=== PATIENT | male | born 1940 | race Caucasian/White ===

== ENCOUNTER 2018-04-25 12:58 | Emergency (ER) | payer MEDICARE, OTHER ==
[~2018-04-25] VITALS: Ht 175.3 cm; Wt 122.5 kg
[~2018-04-25 12:58] MED LIST: ASPIRIN EC325 MG PO; ATIVAN1 MG PO; CALCIUM 600 +1 EAC2 PO; CILOSTAZOL100 MG PO; DILTIAZEM ER240 MG PO; FINASTERIDE5 MG PO; FISH OIL 1,0001 EAC6 PO; FLAXSEED OIL1000 M1 PO; FLONASE ALLERG9.9 ML NS; HYDROCHLOROTHIA25 MG PO; MULTIVITAMINS1 EAC7 PO; POTASSIUM99 M2 PO; SIMVASTATIN20 MG PO; TYLENOL EXTRA500 MG PO
[2018-04-25] MEDS ORDERED: CLOPIDOGREL75 MG PO (13:09)
[2018-04-25] MEDS ORDERED: METOPROLOL SUCC50 MG PO (13:09)
--- NOTE | 2018-04-25 15:28 | EKG ---
[facility] [address] [facility] [place] [address] Signed Normal sinus rhythm Right bundle branch block Abnormal ECG Confirmed by JOSE MENA MD ([id number]) on 04/25/2018 3:28:35 PM Electronically Signed By: JOSE MENA MD 04/25/18 1528 PATIENT NAME: ZAIRA AGUILAR Electrocardiogram DATE OF : 42 PHYSICIAN: JOSE MENA MD REPORT #: [id number] REPORT IS CONFIDENTIAL AND NOT TO BE RELEASED WITHOUT AUTHORIZATION
== END 2018-04-25 16:56 | disposition short-term general hospital (02) ==
LOC: ED 12:58
DX: I20.0 Unstable angina (principal); I10 Essential (primary) hypertension; E78.00 Pure hypercholesterolemia, unspecified; Z88.8 Allergy status to other drugs, medicaments and biological substances; Z79.82 Long term (current) use of aspirin; Z88.5 Allergy status to narcotic agent; Z79.899 Other long term (current) drug therapy
CPT/HCPCS: 71045; 80053; 84484; 85025; 93005; 93010; 99285

== ENCOUNTER 2018-11-03 11:53 | Emergency (ER) | payer MEDICARE, OTHER ==
[~2018-11-03] VITALS: Ht 175.3 cm; Wt 124.7 kg
[~2018-11-03 11:53] MED LIST changes: -ASPIRIN EC325 MG PO; +ASPIRIN EC81 MG PO; +CATAPRES0.1 MG PO; +CLOPIDOGREL75 MG PO; +FUROSEMIDE40 MG PO; +K-TAB ER20 MEQ PO; +METOPROLOL SUCC50 MG PO
--- OUTSIDE RECORDS SUMMARY | 2018-11-03 11:58 | XMS ---
PreManage Notification: ZAIRA AGUILAR Security Day Care Provider Events No recent Security Events currently on file CRITERIA MET - [facility] [place] - 2 Visits in 30 Days CARE PROVIDERS Donavon Damon MD Primary Care Current PHONE: Unknown demi Case or Composition Worker Current PHONE: Unknown [facility] Other [facility] PHONE: Unknown Francisco has no Care Guidelines for this patient. E.D. VISIT COUNT (12 MO.) 1 [facility] 3 [facility] Braden TOTAL 4 NOTE: Visits indicate total known visits. ED/UCC VISIT TRACKING (12 MO.) 11/03/2018 11:54 [facility] [place] TYPE: Emergency COMPLAINT: - POST OP PROBLEM [facility] DIAGNOSES: - Occlusion and stenosis of right carotid artery - Dizziness - Poss Stroke - Aphasia - Cerebral infarction, unspecified 09/15/2018 16:45 [facility] [place] TYPE: Emergency COMPLAINT: - HIGH BLOOD PRESSURE DIAGNOSES: - Other group home (current) drug therapy - Essential (primary) hypertension - Other amnesia - Allergy status to narcotic agent status - terminal gauger supervisor (current) use of aspirin - Allergy status to other drugs, medicaments and biological substances status 04/25/2018 12:59 [facility] [place] TYPE: Emergency COMPLAINT: - CHEST PAIN DIAGNOSES: - skilled nursing (current) use of aspirin - Essential (primary) hypertension - Pure hypercholesterolemia, unspecified - Other chest pain - Unstable angina - PURE HYPERCHOLESTEROLEMIA, UNSPECIFIED - Allergy status to narcotic agent status - Other group home (current) drug therapy - Allergy status to other drugs, medicaments and biological substances status INPATIENT VISIT TRACKING (12 MO.) [facility]2018 [facility] DIAGNOSES: - Occlusion and stenosis of right carotid artery - Aphasia - Transient cerebral ischemic attack, unspecified - Essential (primary) hypertension - Atherosclerotic heart disease of [place] coronary artery without angina pectoris - Cerebral infarction, unspecified [email or web address]
--- NOTE | 2018-11-04 14:33 | EKG ---
[facility] [address] [facility] [place], [place] [address] Signed Normal sinus rhythm Right bundle branch block Abnormal ECG When compared with ECG of 15-SEP-2018 17:35, T wave inversion now evident in Anterior leads Confirmed by AHMET KERN DO ([id number]) on 11/04/2018 2:32:50 PM Electronically Signed By: AHMET KERN DO 11/04/18 1433 PATIENT NAME: ZAIRA AGUILAR Electrocardiogram DATE OF : 42 PHYSICIAN: AHMET KERN DO REPORT #: [id number] REPORT IS CONFIDENTIAL AND NOT TO BE RELEASED WITHOUT AUTHORIZATION
[2018-12-06] MEDS ORDERED: TYLENOL325 MG PO (10:24)
[2018-12-06] MEDS ORDERED: POTASSIUM CHLO10 ME2 PO (10:26)
[2018-12-06] MEDS ORDERED: CLOPIDOGREL75 MG PO (10:27)
[2018-12-06] MEDS ORDERED: AMLODIPINE BESYL5 MG PO (10:28)
== END 2018-11-03 17:31 | disposition home or self-care (01) ==
LOC: ED 11:53
DX: R47.1 Dysarthria and anarthria (principal); R25.3 Fasciculation; I10 Essential (primary) hypertension; E78.00 Pure hypercholesterolemia, unspecified; Z95.5 Presence of coronary angioplasty implant and graft; Z88.8 Allergy status to other drugs, medicaments and biological substances; Z88.5 Allergy status to narcotic agent; Z79.82 Long term (current) use of aspirin; Z79.899 Other long term (current) drug therapy
CPT/HCPCS: 70450; 70496; 70498; 70551; 80053; 84484; 85025; 93005; 93010; 96374; 99285-25; J2060; Q9967

== ENCOUNTER 2018-11-12 14:06 | Emergency (ER) | payer MEDICARE, OTHER ==
[~2018-11-12] VITALS: Ht 175.3 cm; Wt 124.7 kg
--- OUTSIDE RECORDS SUMMARY | 2018-11-12 14:10 | XMS ---
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 [place] VISIT COUNT (12 MO.) 1 [place] [facility] 4 PERCY Egan TOTAL 5 NOTE: Visits indicate total known visits. ED/UCC VISIT TRACKING (12 MO.) 11/12/2018 14:07 [facility] [place] TYPE: Emergency COMPLAINT: - BP PROBLEM/R ARM NUMBNESS/CONFUSION 11/03/2018 11:54 PERCY Solorio TYPE: Emergency COMPLAINT: - POST OP PROBLEM DIAGNOSES: - Essential (primary) hypertension - Allergy status to narcotic agent status - Other [facility] (current) drug therapy - Presence of coronary angioplasty implant and graft - senior living (current) use of aspirin - Dysarthria and anarthria - Pure hypercholesterolemia, unspecified - Allergy status to other drugs, medicaments and biological substances status - Fasciculation [facility]2018 [facility] DIAGNOSES: - Occlusion and stenosis of right carotid artery - Dizziness - Poss Stroke - Aphasia - Cerebral infarction, unspecified 09/15/2018 16:45 PERCY Solorio TYPE: Emergency COMPLAINT: - HIGH BLOOD PRESSURE DIAGNOSES: - Other [facility] (current) drug therapy - Essential (primary) hypertension - Other amnesia - Allergy status to narcotic agent status - senior living (current) use of aspirin - Allergy status to other drugs, medicaments and biological substances status 04/25/2018 12:59 [facility] [place] TYPE: Emergency COMPLAINT: - CHEST PAIN DIAGNOSES: - emt intermediate (current) use of aspirin - Essential (primary) hypertension - Pure hypercholesterolemia, unspecified - Other chest pain - Unstable angina - PURE HYPERCHOLESTEROLEMIA, UNSPECIFIED - Allergy status to narcotic agent status - Other technician terminal and repeater (current) drug therapy - Allergy status to other drugs, medicaments and biological substances status INPATIENT VISIT TRACKING (12 MO.) 10/26/2018 10:35 [place] [facility] TYPE: Intensive Care DIAGNOSES: - Occlusion and stenosis of right carotid artery - Aphasia - Transient cerebral ischemic attack, unspecified - Essential (primary) hypertension - Atherosclerotic heart disease of [place] coronary artery without angina pectoris - Cerebral infarction, unspecified [email or web address]
[2018-11-12] MEDS ORDERED: LORAZEPAM1 MG PO (14:28)
--- NOTE | 2018-11-13 09:16 | EKG ---
[facility] [address] [facility] [place] [address] Signed Normal sinus rhythm Right bundle branch block Abnormal ECG When compared with ECG of 03-NOV-2018 12:27, Nonspecific T wave abnormality has replaced inverted T waves in Anterior leads Confirmed by SUKHJINDER ELLISON MD ([id number]) on 11/13/2018 9:16:26 AM Electronically Signed By: SUKHJINDER ELLISON MD 11/13/18 0916 PATIENT NAME: ZAIRA AGUILAR Electrocardiogram DATE OF : 42 PHYSICIAN: SUKHJINDER ELLISON MD REPORT #: [id number] REPORT IS CONFIDENTIAL AND NOT TO BE RELEASED WITHOUT AUTHORIZATION
[2018-12-06] MEDS ORDERED: TYLENOL325 MG PO (10:24)
[2018-12-06] MEDS ORDERED: POTASSIUM CHLO10 ME2 PO (10:26)
[2018-12-06] MEDS ORDERED: CLOPIDOGREL75 MG PO (10:27)
[2018-12-06] MEDS ORDERED: AMLODIPINE BESYL5 MG PO (10:28)
== END 2018-11-12 16:25 | disposition home or self-care (01) ==
LOC: ED 14:06
DX: R47.9 Unspecified speech disturbances (principal); I10 Essential (primary) hypertension; E78.00 Pure hypercholesterolemia, unspecified; Z95.5 Presence of coronary angioplasty implant and graft; Z88.8 Allergy status to other drugs, medicaments and biological substances; Z79.82 Long term (current) use of aspirin; Z79.899 Other long term (current) drug therapy; Z51.81 Encounter for therapeutic drug level monitoring
CPT/HCPCS: 70450; 71045; 80053; 84484; 85025; 85610; 85730; 93005; 93010; 96374; 99285-25

== ENCOUNTER 2019-07-13 12:56 | Emergency (ER) | payer MEDICARE, OTHER ==
[~2019-07-13] VITALS: Ht 175.3 cm; Wt 124.7 kg
[~2019-07-13 12:56] MED LIST changes: +AMLODIPINE BESYL5 MG PO; +LORAZEPAM1 MG PO; +POTASSIUM CHLO10 ME2 PO; +TYLENOL325 MG PO
--- OUTSIDE RECORDS SUMMARY | 2019-07-13 13:00 | XMS ---
PreManage Notification: ZAIRA AGUILAR Security [place]asseuse Events No recent Security Events currently on file CRITERIA MET - [facility] [place] CARE PROVIDERS CHANDLER MIR Family [facility] 11/04/2018-Current PHONE: [phone] Donavon Damon MD Primary Care Current PHONE: Unknown demi Case or Injection Molder Current PHONE: Unknown [facility] Other [facility] PHONE: Unknown Francisco has no Care Guidelines for this patient. Care History Medical/Surgical 11/14/2018 [facility] - [facility] SPOKE WITH PCP OFFICE- PATIENT AND PCP HAVE BEEN WORKING TOGETHER WITH MEDICATION CHANGES. - PATIENT CURRENTLY HAS A NEUROLOGY AND VASCULAR SURGERY REFERRAL. Albert VISIT COUNT (12 MO.) 1 [facility] 4 [facility] TOTAL 5 NOTE: Visits indicate total known visits. ED/UCC VISIT TRACKING (12 MO.) [facility]13[facility]2019 12[facility] COMPLAINT: - SOB, BLOOD PRESSURE PROBLEM 11/12/2018 14:07 PER[facility] Solorio TYPE: Emergency COMPLAINT: - BP PROBLEM/R ARM NUMBNESS/CONFUSION DIAGNOSES: - Unspecified speech disturbances - Pure hypercholesterolemia, unspecified - Presence of coronary angioplasty implant and graft - Essential (primary) hypertension - Allergy status to other drugs, medicaments and biological substances status - Other machine long goods helper (current) drug therapy - Encounter for therapeutic drug level monitoring - long term care social worker (current) use of aspirin 11/03/2018 11:54 PERCY Solorio TYPE: Emergency COMPLAINT: - POST OP PROBLEM DIAGNOSES: - Essential (primary) hypertension - Allergy status to narcotic agent status - Other [facility] (current) drug therapy - Presence of coronary angioplasty implant and graft - long term care social worker (current) use of aspirin - Dysarthria and anarthria - Pure hypercholesterolemia, unspecified - Allergy status to other drugs, medicaments and biological substances status - Fasciculation 10/26/2018 10:35 [facility]y [facility] TYPE: Emergency DIAGNOSES: - Occlusion and stenosis of right carotid artery - Dizziness - Poss Stroke - Aphasia - Cerebral infarction, unspecified 09/15/2018 16:45 [facility] [place] TYPE: Emergency COMPLAINT: - HIGH BLOOD PRESSURE DIAGNOSES: - Other [facility] (current) drug therapy - Essential (primary) hypertension - Other amnesia - Allergy status to narcotic agent status - assisted (current) use of aspirin - Allergy status to other drugs, medicaments and biological substances status INPATIENT VISIT TRACKING (12 MO.) 10[facility]2018 [facility] DIAGNOSES: - Occlusion and stenosis of right carotid artery - Aphasia - Transient cerebral ischemic attack, unspecified - Essential (primary) hypertension - Atherosclerotic heart disease of [place] coronary artery without angina pectoris - Cerebral infarction, unspecified [email or web address]
[2019-07-13] MEDS ORDERED: METOPROLOL SUCC50 MG PO (13:53)
[2019-07-13] MEDS ORDERED: FLUOXETINE HCL20 MG PO (13:57)
[2019-07-13] MEDS ORDERED: CATAPRES0.1 MG PO (16:22)
--- NOTE | 2019-07-14 12:34 | EKG ---
[facility] [address] [facility] [place] [address] Signed Normal sinus rhythm Right bundle branch block Abnormal ECG When compared with ECG of 12-NOV-2018 14:26, No significant change was found Confirmed by JOSE MENA MD ([id number]) on 07/14/2019 12:34:01 PM Electronically Signed By: JOSE MENA MD 07/14/19 1234 PATIENT NAME: ZAIRA AGUILAR Electrocardiogram DATE OF : 42 PHYSICIAN: JOSE MENA MD REPORT #: [id number] REPORT IS CONFIDENTIAL AND NOT TO BE RELEASED WITHOUT AUTHORIZATION
== END 2019-07-13 16:25 | disposition home or self-care (01) ==
LOC: ED 12:56
DX: I10 Essential (primary) hypertension (principal); Z95.5 Presence of coronary angioplasty implant and graft; Z88.5 Allergy status to narcotic agent; Z88.8 Allergy status to other drugs, medicaments and biological substances; Z79.82 Long term (current) use of aspirin; Z79.899 Other long term (current) drug therapy
CPT/HCPCS: 71045; 80053; 83735; 84484; 85025; 93005; 93010; 99284-25

== ENCOUNTER 2019-07-26 12:49 | Emergency (ER) | payer MEDICARE, OTHER ==
[~2019-07-26] VITALS: Ht 175.3 cm; Wt 124.7 kg
--- OUTSIDE RECORDS SUMMARY | ~2019-07-26 | XMS | Encounter Summary ---
Demographics + + + | Address | [address] | | | [place] [address] | + + + | Home Phone | | + + + | Preferred Language | Unknown | + + + | Marital Status | | + + + | Orthodoxy Affiliation | 1001 | + + + | Race | Unknown | + + + | Ethnic Group | Unknown | + + + Author + + + | Author | [facility] | | | and [place] | + + + | Organization | [facility] | | | and [place] | + + + | Address | Unknown | + + + | Phone | Unavailable | + + + Support + + +---------+ + | Name | Relationship | Address | Phone | + + +---------+ + | Ina Alvarado | ECON | Unknown | | + + +---------+ + Care Team Providers + +------+ + | Care Vocational Horticulture Instructor Name | Role | Phone | + +------+ + | Franky Avalos MD | PCP | | + +------+ + Reason for Visit + + + | Reason | Comments | + + + | Back Pain | Discuss Injections | + + + Evaluate & Treat (Routine) + + + + + + + | Status | Reason | Specialty | Diagnoses / | Referred By | Referred To | | | | | Procedures | Contact | Contact | + + + + + + + | Authorized | Specialty | Physical | Diagnoses | | [facility] | | | Services | Medicine and | Muscle | [place], | Paul Rousseau MD [address] | | | Required | Rehabilitatio | twitching | [place], | [address] | | | | n | | [address] | [place], | | | | | | [address] | [place] [address] | | | | | | [place] | Phone: | | | | | | [address] | [phone] | | | | | | Phone: | Fax: | | | | | | [phone] | [phone] | | | | | | Fax: | | | | | | | [phone] | | + + + + + + + Encounter Details +--------+---------+ + + + | Date | Type | Department | Care Team | Description | +--------+---------+ + + + | 07/05/ | Office | [facility] | Mohit Porter PA-C | Spinal stenosis of | | 2019 | Visit | PHYSIATRY [address] | lumbar region with | | | | [place], | [address] [place] | neurogenic | | | | [place] [address] | [place] [address] | claudication | | | | [phone] | [phone] | (Primary Dx); | | | | | | Foraminal stenosis | | | | | | of lumbar region; | | | | | | Lumbar radicular | | | | | | syndrome | +--------+---------+ + + + Social History + +-------+ +--------+------+ | Tobacco Use | Types | Packs/Day | Years | Date | | | | | Used | | + +-------+ +--------+------+ | Never Smoker | | | | | + +-------+ +--------+------+ + +---+---+---+ | Smokeless Tobacco: | | | | | Never Used | | | | + +---+---+---+ + + +---------+ + | Alcohol Use | Drinks/We | oz/Week | Comments | | | ek | | | + + +---------+ + | Yes | | | Social | + + +---------+ + + + + | Sex Assigned at | Date Recorded | | | | + + + | Not on file | | + + + + + + + | Job Start Date | Occupation | Industry | + + + + | Not on file | Not on file | Not on file | + + + + + + + + | Travel History | Travel Start | Travel End | + + + + + + | No recent travel history available. | + + documented as of this encounter Last Filed Vital Signs + + + + | Vital Sign | Reading | Time Taken | + + + + | Blood Pressure | 110/70 | 07/05/2019 1447 PDT | + + + + | Pulse | - | - | + + + + | Temperature | - | - | + + + + | Respiratory Rate | - | - | + + + + | Oxygen Saturation | - | - | + + + + | Inhaled Oxygen | - | - | | Concentration | | | + + + + | Weight | 111.6 kg (246 lb) | 07/05/20191446 PDT | + + + + | Height | 175.3 cm (5' 9") | 07/05/20191446 PDT | + + + + | Body Mass Index | 36.33 | 07/05/20191446 PDT | + + + + documented in this encounter Functional Status + + + + | Functional Status | Response | Date of Assessment | + + + + | Are you deaf or do you have serious | No | 10/28/2018 | | difficulty hearing? | | | + + + + | Are you blind or do you have serious | No | 10/28/2018 | | difficulty seeing, even when wearing | | | | glasses? | | | + + + + | Do you have serious difficulty walking or | No | 10/28/2018 | | climbing stairs? (5 years old or older) | | | + + + + | Do you have difficulty dressing or bathing? | No | 10/28/2018 | | (5 years old or older) | | | + + + + | Because of a physical, mental, or emotional | No | 10/28/2018 | | condition, do you have difficulty doing | | | | errands alone such as visiting a doctor's | | | | office or shopping? [15 years old or | | | | older)] | | | + + + + + + + + | Cognitive Status | Response | Date of Assessment | + + + + | Because of a physical, mental, or emotional | No | 10/28/2018 | | condition, do you have serious difficulty | | | | concentrating, remembering, or making | | | | decisions? (5 years old or older) | | | + + + + documented as of this encounter Patient Instructions Patient Instructions Mohit Porter PA-C - 07/05/2019 15:20 PDT 1) Bilateral L4-L5 TFESI ordered today. Our office will call you once we have approval from insurance to move forward with next step in treatment plan. 2) Continue with at home exercises. 3) Continue with current Rx medications as prescribed and directed. 4) Follow up 3-4 weeks after injection. Common Spine and Disk Problems The most common serious back problemshappen when disks tear, bulge, or rupture. In such c ases, an injured disk can no longer cushion the vertebrae and absorb shock. As a result, the rest of your spine may also weaken. This can lead to pain, stiffness, and other symptoms. Torn annulus. A sudden movement may cause a tiny tear in an annulus. Nearby ligaments ma y stretch. Contained herniated disk. As a disk wears out, the nucleus may bulge into the annulus an d press on nerves. Extruded herniateddisk. When a disk ruptures, its nucleus can squeeze out and irritate a nerve. Arthritis. As disks wear out over time, bone spurs form. These growths can irritate nerv es and inflame facets. Instability. As a disk stretches, the vertebrae slip back and forth. This can put pressu re on the annulus. Spondylolisthesis.Thisis a condition in which one vertebra has moved forward or back rodriguez, in relation to the one above or below it. Thiscauses a crack (stress fracture) in th e areas that link the vertebrae together. This may put pressure on the annulus, stretch the disk, and irritate nerves. Date Last Reviewed: 03/18/201819993490-9969 [employer]. [address] [place] [address], [place] [address]. All [facility] ts reserved. This information is not intended as a substitute for professional medical care. Always follow your healthcare professional's instructions. documented in this encounter Progress Notes Mohit Porter PA-C - 07/05/2019 1520 PDT Mohit Porter PA-C [address] [facility], [address] [place] [address] FAX: CHIEF COMPLAINT: Chief Complaint Patient presents with Back Pain Discuss Injections HISTORY OF PRESENT ILLNESS: Mr. Alvarado is a 79 y.o. male being seen today on follow-up for complaints of chronic Low greg k pain. The patient has been seen for this complaint in the past. Previously it was recomme nded Bialteral L4-U2OURKW done by Dr. Morse on 04/03/2019 for Lumbar spinal stenosis and foraminal stenosis. He reports that the treatment was effective up until the past 1 week. H e reports that the treatment was effective up until the past 1 week. He is requesting to hav e the same type of injections repeated. Patient was originally seen by our Neurosurgery grou p for these symptoms back in 2013. Mr. Alvarado reports that the symptoms have gradually been worsening over the past 1 week. He rates the pain as moderate. He describes the pain as aching, sharp, soreness or localized . His symptoms worsen with movement, walking, bending, twisting. His symptoms improve with position change, physical therapy. The patient does not describe numbness of the bilatera l lower extremities. He does not report weakness of the bilateral lower extremities. He d oes not have bowel and bladder dysfunction. He does not have saddle anesthesia. Treatments for these complaints have included PT, injections, medications, TENS unit. Patient's medications, allergies, past medical, surgical, social and family histories were reviewed and updated as appropriate. CURRENT MEDICATIONS: Current Outpatient Medications Medication Sig Dispense Refill acetaminophen (TYLENOL) 650 MG CR tablet Take 650 mg by mouth every 8 hours as needed f or Pain. aspirin 81 mg EC tablet Take 81 mg by mouth Daily. cyanocobalamin (VITAMIN B-12) 1000 MCG tablet Take 1,000 mcg by mouth. finasteride (PROSCAR) 5 mg tablet finasteride 5 mg tablet Take 1 tablet every day by oral route. current FLUoxetine (PROZAC) 10 mg capsule Take 10 mg by mouth nightly. FLUoxetine (PROZAC) 20 mg capsule Take 20 mg by mouth nightly. fluticasone (FLONASE ALLERGY RELIEF) 50 mcg/nasal spray Flonase Allergy Relief 50 mcg/a ctuation nasal spray,suspension Inhale 2 sprays twice a day by intranasal route. furosemide (LASIX) 40 mg tablet Take 40 mg by mouth as needed. LORazepam (ATIVAN) 1 mg tablet Take 0.5 mg by mouth Daily as needed. metoprolol succinate (TOPROL-XL) 50 mg 24 hr tablet Take 50 mg by mouth Daily. ondansetron (ZOFRAN ODT) 4 mg disintegrating tablet Take 4 mg by mouth every 6 hours as needed for Nausea. promethazine-codeine (PHENERGAN WITH CODEINE) 6.25-10 mg/5 mL syrup Take 5 mLs by mouth 4 times daily as needed. simvastatin (ZOCOR) 20 mg tablet Take 20 mg by mouth nightly. TURMERIC PO Take 285 mg by mouth Daily. No current facility-administered medications for this visit. ALLERGIES: Allergies Allergen Reactions Morphine Other (See Comments) Hallucinations Lisinopril Other (See Comments) Cough Dizziness COUGH Losartan Nausea Only Continuous nausea and irritability REVIEW OF SYSTEMS: GENERALLY: No fever, chills, no night sweats, no fatigue, no weight loss, no weight gain. EYES: No vision changes. EARS, NOSE, AND THROAT: No hearing loss, no ear pain, no nosebleeds, no toothache, no gum p roblems, no significant snoring or sleep apnea, no seasonal allergies, no difficulty swallow ing, no hoarseness. NEUROMUSCULAR: Please see the review of systems discussed above in the history of present illness. In addition, the patient has no dizziness, no blackouts, no headaches. PSYCHIATRIC: No depression, no difficulty sleeping, no anxiety, no memory loss. CARDIOVASCULAR: No chest pain, no palpitations, no swollen ankles. PULMONARY: No shortness of breath, no cough. GASTROINTESTINAL: No poor appetite, no diarrhea, no nausea or vomiting, no bowel incontine nce, no hemorrhoids, no constipation, no abdominal pain. GENITOURINARY: No urinary difficulty and no incontinence. SKIN: No rashes. HEMATOLOGIC/LYMPHATIC: No enlarged lymph nodes or swollen glands. ENDOCRINE: No diabetes, no thyroid disease, no osteopenia or osteoporosis, no breast drain age. RHEUMATOLOGIC: No osteoarthritis, no rheumatoid arthritis. PHYSICAL EXAMINATION: Blood pressure 110/70, height 1.753 m (5' 9"), weight 111.6 kg (246 lb). Body mass index is 36.33 kg/m. GENERAL: The patient is well developed and well nourished. He does not appear uncomfortabl e when seated. HEENT: Normocephalic and atraumatic. Normal sclerae without icterus. NECK (ANTERIOR): There is no apparent cervical lymphadenopathy or thyromegaly. PULMONARY: The patient is in no acute respiratory distress with unlabored respirations. CARDIOVASCULAR: Regular rate and rhythm. There is not lower extremity edema. ABDOMEN: Non-distended. SKIN: Limited skin exam shows no significant rashes or lesions. NEUROLOGIC: The patient is awake, alert, and oriented. He follows simple and complex commands. His speech is fluent. He comprehends speech well. He has no apparent deficits with short or longterm memory. The cranial nerves appear grossly intact. Sensory exam does not show diminished sensation to light touch in the bilateral lower extre mities. REFLEX: RIGHT LEFT PATELLAR 2+ 2+ ACHILLES 2+ 2+ MUSCULOSKELETAL : MOTOR EXAM: (5 IS NORMAL) * Indicates pain limited MUSCLE/ MOVEMENT: RIGHT LEFT Hip Flexion 5 5 Hip Extension 5 5 Knee Flexion 5 5 Knee Extension 5 5 Extensor Hallicus Longus 5 5 Ankle Dorsiflexion 5 5 Plantarflexion 5 5 Straight leg raise and slump-sit are negative. Darrick's maneuver and impingement testing were negative for any groin pain. There was no tenderness to palpation over the greater trochanters or sacral sulci. The patient localized the majority of the pain to the L2-L3, L3-L4, L4-L5 region. Lumbar f acet loading was negative. The patient was able to heel and toe walk without difficulty. There was no redness, effusi on, warmth or joint line tenderness in the knees or ankles. RADIOGRAPHIC REVIEW: The patient's imaging was reviewed in detail with the patient today during the visit. Lumba r MRI from 11/25/2018: L3-L4 and L4-5 central canal stenosis that is moderate/severe. Multilevel significant neural foraminal narrowing. Spondylosis. DDD ASSESSMENT: Encounter Diagnoses Name Primary? 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 Shared decision leatha ojeda between Russ Alvarado and I was used during today's encounter. We discussed the patient 's differential diagnosis, description of symptoms, physical exam, imaging and treatment abdirizak n that suggest diagnosis at this time. 2) I counseled patient on treatment options which included conservative self management usi ng OTC NSAIDs/Ice and heat packs, physical therapy, prescription medications, epidural stero id injection, as well as possible surgical intervention. 3) Imaging: As descibed above in radiology review. Lumbar MRI was ordered to assess lumbar spine for herniation, disc pathology, and/or nerve root impingement that may be contributing to patient's symptoms. 4) The patient has had significant conservative care including medications (NSAIDS and narc otics), PT (multiple sessions over the years) and care management assistant. Unfortunately Russ Alvarado continues to have significant discomfort. It appears to me that the pain is primaril y coming from L2-L3, L3-L4 and L4-L5 region. I did feel that Russ Alvarado would be a good candidate for interventional procedures and I offered a bilateral L4-L5 TFESI to be done. I did feel that Russ Alvarado would be a good candidate for medication: Gabapentin, Cymba lta and nortriptyline 5) Patient will follow up in 3 weeks post injection or as needed to discuss any imaging and /or progress with today's treatment plan. 6) If current treatment plan is insufficient for symptom relief we could consider epidural injection, referral to neurosurgeon, Cymbalta, nortriptyline, gabapentin and Xray as the nex t possible option. I spent 25 minutes in visit with Russ Alvarado today with the majority of time spent coun selling the patient on his diagnosis, options for his care, and coordinating his care. 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 | | +--------+ + + + + | 02/13/ | Office | Cardiology | Archie Gould, | | | 2019 | Visit | | MD [address] | | | | | | [place] [address] [place] | | | | | | [phone] | | | | | | | | +--------+ + + + + + +--------+ + + | Name | Priori | Associated Diagnoses | Order Schedule | | | ty | | | + +--------+ + + | FL MURRAY Lumbar Transforaminal | Routin | Spinal stenosis of | Expected: | | | e | lumbar region with | 07/05/2019, Expires: | | | | neurogenic | 07/05/2020 | | | | claudication | | | | | Foraminal stenosis | | | | | of lumbar region | | | | | Lumbar radicular | | | | | syndrome | | + +--------+ + + documented as of this encounter Visit Diagnoses + + | Diagnosis | + + | Spinal stenosis of lumbar region with neurogenic claudication - Primary Spinal | | stenosis, lumbar region, with neurogenic claudication | + + | Foraminal stenosis of lumbar region Spinal stenosis, lumbar region, without | | neurogenic claudication | + + | Lumbar radicular syndrome Thoracic or lumbosacral neuritis or radiculitis, | | unspecified | + + documented in this encounter
--- OUTSIDE RECORDS SUMMARY | ~2019-07-26 | XMS | Encounter Summary ---
Demographics + + + | Address | [address] | | | [place] [address] | + + + | Home Phone | | + + + | Preferred Language | Unknown | + + + | Marital Status | | + + + | Jehovah'S Witness Affiliation | 1001 | + + + | Race | Unknown | + + + | Ethnic Group | Unknown | + + + Author + + + | Author | [facility] | | | and [place] | + + + | Organization | [facility] | | | [...] Team Providers + +------+ + | Care Armoring Machine Operator Name | Role | Phone | + +------+ + | Franky Avalos MD | PCP | | + +------+ + Encounter Details +--------+ + + + + | Date | Type | Department | Care Team | Description | +--------+ + + + + | 05/10/ | Orders Only | [facility] | Provider, | Essential (primary) | | 2018 | | [facility] | Historical, MD [address] | hypertension; | | | | CONVERSION [address] | [address] | Encounter for | | | | [address] [place], [place] | [place] [address] | therapeutic drug | | | | [address] | | level monitoring; | | | | [phone] | | Hypokalemia | +--------+ + + + + Social History + +-------+ [...] + + documented as of this encounter Functional Status + + + [...] + + documented as of this encounter Plan of Treatment +--------+ + + + + | Date | Type | Specialty | Care Team | Description | +--------+ + + + + | 08/10/ | Appointment | Radiology | Mohit Porter PA-C | | | 2018 | | | [address] | | | | | | [address] [place] | | | | | | [place] [address] | | | | | | [phone] | | | | | | | | | | | | 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, [employer] | | +--------+ + + + + | 02/13/ | Office | Cardiology | Archie Gould, | | | 2020 | Visit | | MD [address] | | | | | | [place] | | | | | | [address] | | | | | | | | +--------+ + + + + + +--------+ + + | Name | Priori | Associated Diagnoses | Order Schedule | | | ty | | | + +--------+ + + | Basic Metabolic Panel | Routin | Essential | Expected: | | | e | (primary) | 07/14/2018, Expires: | | | | hypertension | 06/13/2019 | | | | Encounter for | | | | | therapeutic drug | | | | | level monitoring | | | | | Hypokalemia | | + +--------+ + + documented as of this encounter Visit Diagnoses + + | Diagnosis | + + | Essential (primary) hypertension Unspecified essential hypertension | + + | Encounter for therapeutic drug level monitoring Encounter for therapeutic drug | | monitoring | + + | Hypokalemia Hypopotassemia | + + documented in this encounter"
--- OUTSIDE RECORDS SUMMARY | ~2019-07-26 | XMS | Encounter Summary ---
Demographics + + + | Address | [address] | | | [place] [address] | + + + | Home Phone | | + + + | Preferred Language | Unknown | + + + | Marital Status | | + + + | Zoroastrianism Affiliation | 1001 | + + + | Race | Unknown | + + + | Ethnic Group | Unknown | + + + Author + + + | Author | [facility] | | | and [place] | + + + | Organization | [facility] | | | and [...] Team Providers + +------+ + | Care Ocean Import Representative Name | Role | Phone | + +------+ + | Franky Avalos MD | PCP | | + +------+ + Reason for Visit + + + | Reason | Comments | + + + | Follow-up | atherosclerosis | + + + Evaluate & Treat (Routine) + +--------+ + + + + | Status | Reason | Specialty | Diagnoses / | Referred By | Referred To | | | | | Procedures | Contact | Contact | + +--------+ + + + + | Authorized | | General | Diagnoses | Robbie, | , | | | | Surgery | Carotid | Franky | Jorge Peacock, | | | | | stenosis | MD Serina | MD FACS [address] | | | | | Procedures | [address] | | | | | DC OFFICE | [place] | [place], | | | | | OUTPATIENT | [place] | [place] [address] | | | | | VISIT [address] | [place] [address] | Phone: | | | | | MINUTES | Phone: | [phone] | | | | | | [phone] | Fax: | | | | | | Fax: | [phone] | | | | | | [phone] | | + +--------+ + + + + Encounter Details +--------+---------+ + + + | Date | Type | Department | Care Team | Description | +--------+---------+ + + + | 06/14/ | Office | [facility] | Jorge Lebron | Atherosclerosis of | | 2019 | Visit | SURGERY [address] | MD Ayush, FACS [address] | arteries of | | | | [place], [place] | [address] [place] | extremities (HCC) | | | | [address] | [place] [address] | (Primary Dx) | | | | [phone] | [phone] | | | | | | | | +--------+---------+ + + + Social History [...] + + + | Blood Pressure | - | - | + + + + | Pulse | 72 | 06/14/2019831 PDT | + + + + | Temperature | 35.9 C (96.7 F) | 06/14/201932 PDT | + + + + | Respiratory Rate | 16 | 06/14/2019831 PDT | + + + + | Oxygen Saturation | 98% | 06/14/2019831 PDT | + + + + | Inhaled Oxygen | - | - | | Concentration | | | + + + + | Weight | - | - | + + + + | Height | 175.3 cm (5' 9") | 06/14/2019831 PDT | + + + + | Body Mass Index | - | - | + + + + documented in [...] + + documented as of this encounter Progress Notes Jorge Lebron MD, FACS - 06/14/2019 0840 PDTFormatting of this note might be differen t from the original. HISTORY OF PRESENT ILLNESS Patient Identification: Russ Alvarado 1940 Is a 79 y.o. male , a patient of Esdras Avalos MD. Patient is here alone. S: Date of surgery: 10/27/2018. Title of surgery: RIGHT carotid endarterectomy. Physician notes: Patient arrives today to follow up on LEFT foot pain. He continues to have LEFT leg weaknes s but has noted a significant improvement in his LEFT leg weakness. He is able to walk a lit tle over 1/4 a mile before needing to stop due to back pain. On a good day he is only able to stand for about 5 minutes before needing to sit down due t o back pain. He has been following up with Dr. Lujan regarding LEFT upper extremity and lowe r extremity pain and weakness. It was recommend he have a Nerve conduction study but he has not yet completed this.Has been having Bilateral transforaminal epidural steroid injections which he believes are helping his pain. He has been seeing [facility] orthopedics for back p ain. Reports he is doing total motion therapy, back brace and back exercises to avoid surger y. Patient been monitoring his blood pressure, states he usually struggles with hypotension. R ecently had some changes to his blood pressure medication. He is working on weight loss. PAST MEDICAL HISTORY Past Medical History: Diagnosis Date Allergic rhinitis Aortic stenosis Arthritis DJD Atypical chest pain Autonomic nervous system disorder Benign prostatic hyperplasia without urinary obstruction BPH (benign prostatic hyperplasia) Broken ankle 1967 Bruit Cardiovascular symptoms Cervicalgia Chronic back pain Chronic cough Chronic neck pain CKD (chronic kidney disease), stage III (HCC) Claudication, intermittent (HCC) Colon polyps Coronary artery disease Cough CVA (cerebral vascular accident) ([facility]) 10/26/2018 Degeneration of lumbar or lumbosacral intervertebral disc Depression with anxiety Diverticular disease of colon Dizziness DJD (degenerative joint disease) Elevated PSA Epidural lipomatosis Essential hypertension GERD (gastroesophageal reflux disease) Glucose intolerance Gross hematuria Hyperlipidemia Hypertension Impaired fasting glucose Incomplete bladder emptying Low back pain Moderate aortic stenosis Morbid obesity (HCC) Arreguin's neuroma Neuropathy Obesity, morbid (HCC) Pain in thoracic spine Prostate hyperplasia with urinary obstruction Radicular syndrome of lower limbs Sleep apnea SOB (shortness of breath) Spinal stenosis Spinal stenosis, cervical region Thoracic or lumbosacral neuritis or radiculitis, unspecified TIA (transient ischemic attack) 10/2018 Past Surgical History: Procedure Laterality Date ANKLE FRACTURE SURGERY Left 1974 APPENDECTOMY 1958 BACK SURGERY 2011 CARDIAC CATHERIZATION 10/07/2017 moderate aortic stenosis. Single-vessel coronary artery disease of the proximal RCA. CARDIAC CATHERIZATION 04/26/2018 Mild coronary artery disease. Patent stent in the proximal RCA with no significant residua l disease. CAROTID ENDARTERECTOMY Left 2014 CAROTID ENDARTERECTOMY Right 10/27/2018 Procedure: CAROTID ENDARTERECTOMY; Surgeon: Jorge Lebron MD, FACS; Location: [facility] AIN OR CATARACT REMOVAL CERVICAL SPINE SURGERY 05/07/2014 C3-4, C4-5, C5-6, C6-7 ANTERIOR CERVICAL DISCECTOMY FUSION; Laterality: N/A; Surgeon: Jose Davis MD; Location: [facility] MAIN OR COLONOSCOPY 2013 polyps COLONOSCOPY 01/10/2016 Polyps, diverticulosis, repeat 2020; Dr. Arrieta [place], [place] CORONARY ANGIOPLASTY WITH STENT PLACEMENT Right Angioplasty of the RCA with 2 overlapping JULIUS (resolute integrity 3x18mm and 4x12mm) stent s ECHOCARDIOGRAM 05/03/2018 left ventricle is normal in size. Mild concentric hypertrophy with an ejection fraction of 60-65%. Right ventricle with normal function. Moderate aortic stenosis with an ECTOR = 1.3 CM 2 LUM[address] SURG[address] 2011 Dr. Davis; Decompression L3-4, L4-[address] Sauer PROSTATE BIOPSY 2007 Dr. Sauer PROSTATE BIOPSY 2015 Dr. Castelan SKIN GRAFT Left 1972 Leg SKIN GRAFT Left 1971 Skin graft left ankle TONSILLECTOMY TURP 2009 Allergies Allergen Reactions Morphine Other (See Comments) Hallucinations Lisinopril Other (See Comments) Cough Dizziness COUGH Losartan Nausea Only Continuous nausea and irritability Medications: Outpatient Encounter Medications as of 06/14/2019 Medication Sig Dispense Refill acetaminophen (TYLENOL) 650 MG CR tablet Take 650 mg by mouth every 8 hours as needed f or Pain. [DISCONTINUED] aspirin 325 mg tablet aspirin 325 mg tablet Take 1 tablet every day by oral route. aspirin 81 mg EC tablet Take 81 mg by mouth Daily. [DISCONTINUED] cilostazol (PLETAL) 100 mg tablet Pletal 100 mg tablet Take 1 tablet twice a day by oral route. cyanocobalamin (VITAMIN B-12) 1000 MCG tablet Take 1,000 mcg by mouth. DILT-XR 240 MG 24 hr capsule Take 1 capsule by mouth Daily. [DISCONTINUED] dilTIAZem (DILACOR XR) 240 mg 24 hr capsule Every 24 Hours. [DISCONTINUED] dilTIAZem (DILTIAZEM CD) 240 MG 24 hr capsule diltiazem CD 240 mg capsul e,extended release 24 hr Take 1 capsule every day by oral route. finasteride (PROSCAR) 5 mg tablet finasteride 5 [...] tablet Take 20 mg by mouth nightly. [DISCONTINUED] simvastatin (ZOCOR) 20 mg tablet simvastatin 20 mg tablet Take 1 tablet every day by oral route. current [DISCONTINUED] TURMERIC CURCUMIN PO Take 285 mg by mouth Daily. No facility-administered encounter medications on file as of 06/14/2019. Family History Problem Relation Age of Onset Heart disease Father Heart attack Father Arrhythmia Father Coronary artery disease Father Hypertension Mother No known problems Brother No known problems Paternal Grandfather No known problems Paternal Grandmother No known problems Maternal Grandfather No known problems Maternal Grandmother No known problems Child Social History: He reports that he has never smoked. He has never used smokeless tobacco. He reports that h e drinks alcohol. He reports that he does not use drugs. PHYSICAL EXAM Vitals: 06/14/19 0832 Pulse: 72 Resp: 16 Temp: 35.9 C (96.7 F) TempSrc: Temporal SpO2: 98% Height: 1.753 m (5' 9") Body mass index is 36.33 kg/m. PE: General Appearance: Alert, cooperative, no distress, appears stated age Skin: Warm and dry Neck: Supple, symmetrical, no adenopathy, no neck bruits, RIGHT neck scar Lungs: Breath sounds are clear to auscultation bilaterally, no wheezes, crackles Heart: Regular rate and rhythm, S1, S2 normal, no murmur. No pacemaker. Extremities: Extremities normal, atraumatic, no cyanosis, clubbing, or edema Palpable Pulses*: Femoral Popliteal Dorsalis pedis Post tibial LEFT 2 2 0 1+ RIGHT 2 2 2+ 0 Doppler Pulses: LEFT strong strong RIGHT strong absent Neurologic: Alert and oriented x3,Moving all 4 extremities. , Gait normal ASSESSMENT 1. Atherosclerosis of arteries of extremities (HCC) PLAN 1. Asymptomatic bilateral tibial vessel stenosis. In my opinion, most of his leg pain i s neurogenic. Continue to follow up with Dr. Lujan for back pain. 2. S/P RIGHT Carotid endarterectomy Continue as planned with repeat carotid ultrasound in 2018 with follow up Follow up in August 2019 to review carotid duplex scan. 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
--- OUTSIDE RECORDS SUMMARY | ~2019-07-26 | XMS | Encounter Summary ---
Demographics + + + | Address | [address] | | | [place] [address] | + + + | Home Phone | | + + + | Preferred Language | Unknown | + + + | Marital Status | | + + + | Catholic Affiliation | 1001 | + + + | Race | Unknown | + + + | Ethnic Group | Unknown | + + + Author + + + | Author | [facility] | | | and [place] | + + + | Organization | [facility] | | | and [...] Team Providers + +------+ + | Care Log Truck Driver Name | Role | Phone | + +------+ + | Franky Avalos MD | PCP | | + +------+ + Reason for Visit +--------+ + | Reason | Comments | +--------+ + | Other | Patient wanted sooner appointment because he is having problems. | +--------+ + Encounter Details +--------+ + + + + | Date | Type | Department | Care Team | Description | +--------+ + + + + | 06/05/ | Telephone | [facility] | Sydni Padron | Other (Patient | | 2019 | | CARDIOLOGY RJ Garcia, Bindery Operator | wanted sooner | | | | [address] | | appointment because | | | | [place] | | he is having | | | | [address] | | problems. 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
--- OUTSIDE RECORDS SUMMARY | ~2019-07-26 | XMS | Encounter Summary ---
Demographics + + + | Address | [address] | | | [place] [address] | + + + | Home Phone | | + + + | Preferred Language | Unknown | + + + | Marital Status | | + + + | Restorationism Affiliation | 1001 | + + + | Race | Unknown | + + + | Ethnic Group | Unknown | + + + Author + + + | Author | [facility] | | | and [place] | + + + | Organization | [facility] | | | [...] Team Providers + +------+ + | Care Wrapper Operator Name | Role | Phone | [...] [address] | | | | | [place] OFFICE | [place] | [place], | | | | | OUTPATIENT | [place] | [place] [address] | | | | | VISIT [address] | [place] [address] | Phone: | | | | | MINUTES | Phone: | [phone] | | | | | | [phone] | Fax: | | | | | | Fax: | [phone] | | | | | | [phone] | | + +--------+ + + + + Encounter Details +--------+---------+ + + + | Date | Type | Department | Care Team | Description | +--------+---------+ + + + | 06/14/ | Office | [facility] | Jorge Lebron | Atherosclerosis of | | 2019 | Visit | SURGERY [address] | MD Ayush, FACS [address] | arteries of | | | | [place], [place] | [address] [place] | extremities (HCC) | | | | [address] | [place] [address] | (Primary Dx) | | | | [phone] | [phone] | | | | | | | [...] helping his pain. He has been seeing [facility] orthopedics for back p ain. Reports [...] artery disease Cough CVA (cerebral vascular accident) ([facility]) 10/26/2018 Degeneration of lumbar or lumbosacral intervertebral [...] ENDARTERECTOMY; Surgeon: Jorge Lebron MD, FACS; Location: [facility] AIN OR CATARACT REMOVAL CERVICAL SPINE SURGERY 05/07/2014 C3-4, C4-5, C5-6, C6-7 ANTERIOR CERVICAL DISCECTOMY FUSION; Laterality: N/A; Surgeon: Jose Davis MD; Location: [facility] MAIN OR COLONOSCOPY 2013 polyps COLONOSCOPY 01/10/2016 Polyps, diverticulosis, repeat 2020; Dr. 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
--- OUTSIDE RECORDS SUMMARY | ~2019-07-26 | XMS | Clinical Summary ---
Demographics + + + | Address | [address] | | | [place] [address] | + + + | Home Phone | | + + + | Preferred Language | Unknown | + + + | Marital Status | | + + + | Caodaism Affiliation | 1001 | + + + | Race | Unknown | + + + | Ethnic Group | Unknown | + + + Author + + + | Author | [facility] | | | and [place] | + + + | Organization | [facility] | | | and [...] Team Providers + +------+ + | Care Director Of Personnel Name | Role | Phone | + +------+ + | Franky Avalos MD | PCP | | + +------+ + Allergies + + + + + + | Active Allergy | Reactions | Severity | Noted | Comments | | | | | Date | | + + + + + + | Amlodipine | Vertigo | | 07/19/20 | | | | | | 19 | | + + + + + + | Lisinopril | Other (See Comments) | Low | 08/15/20 | Cough Dizziness | | | | | 12 | COUGH | + + + + + + | Losartan | Nausea Only | Low | 10/14/20 | Continuous nausea | | | | | 17 | and irritability | + + + + + + | Morphine | Other (See Comments) | Medium | 04/25/20 | Hallucinations | | | | | 18 | | + + + + + + Medications + + + +---------+------+------+-------+ | Medication | Sig | Dispensed | Refills | Star | End | Statu | | | | | | t | Date | s | | | | | | Date | | | + + + +---------+------+------+-------+ | simvastatin | Take 20 mg by mouth | | 0 | | | Activ | | (ZOCOR) 20 mg tablet | nightly. | | | | | e | + + + +---------+------+------+-------+ | acetaminophen | Take 650 mg by mouth | | 0 | | | Activ | | (TYLENOL) 650 MG CR | every 8 hours as | | | | | e | | tablet | needed for Pain. | | | | | | + + + +---------+------+------+-------+ | aspirin 81 mg EC | Take 81 mg by mouth | | 0 | | | Activ | | tablet | Daily. | | | | | e | + + + +---------+------+------+-------+ | furosemide (LASIX) | Take 40 mg by mouth | | 0 | | | Activ | | 40 mg tablet | as needed. | | | | | e | + + + +---------+------+------+-------+ | ondansetron | Take 4 mg by mouth | | 0 | | | Activ | | (ZOFRAN ODT) 4 mg | every 6 hours as | | | | | e | | disintegrating | needed for Nausea. | | | | | | | tablet | | | | | | | + + + +---------+------+------+-------+ | LORazepam (ATIVAN) | Take 0.5 mg by mouth | | 0 | 01/2 | | Activ | | 1 mg tablet | Daily as needed. | | | 5/20 | | e | | | | | | 19 | | | + + + +---------+------+------+-------+ | FLUoxetine | Take 20 mg by mouth | | 0 | | | Activ | | (PROZAC) 20 mg | nightly. | | | | | e | | capsule | | | | | | | + + + +---------+------+------+-------+ | FLUoxetine | Take 10 mg by mouth | | 0 | 02/1 | | Activ | | (PROZAC) 10 mg | nightly. | | | 8/20 | | e | | capsule | | | | 19 | | | + + + +---------+------+------+-------+ | cyanocobalamin | Take 1,000 mcg by | | 0 | | | Activ | | (VITAMIN B-12) 1000 | mouth. | | | | | e | | MCG tablet | | | | | | | + + + +---------+------+------+-------+ | | Take 5 mLs by mouth | | 0 | | | Activ | | promethazine-codeine | 4 times daily as | | | | | e | | (PHENERGAN WITH | needed. | | | | | | | CODEINE) 6.25-10 | | | | | | | | mg/5 mL syrup | | | | | | | + + + +---------+------+------+-------+ | finasteride | finasteride 5 mg | | 0 | | | Activ | | (PROSCAR) 5 mg | tablet Take 1 tablet | | | | | e | | tablet | every day by oral | | | | | | | | route. current | | | | | | + + + +---------+------+------+-------+ | fluticasone | Flonase Allergy | | 0 | | | Activ | | (FLONASE ALLERGY | Relief 50 | | | | | e | | RELIEF) 50 mcg/nasal | mcg/actuation nasal | | | | | | | spray | spray,suspension | | | | | | | | Inhale 2 sprays | | | | | | | | twice a day by | | | | | | | | intranasal route. | | | | | | + + + +---------+------+------+-------+ | metoprolol | Take 25 mg by mouth | | 0 | | | Activ | | succinate | Daily. | | | | | e | | (TOPROL-XL) 50 mg 24 | | | | | | | | hr tablet | | | | | | | + + + +---------+------+------+-------+ | TURMERIC PO | Take 285 mg by mouth | | 0 | | | Activ | | | Daily. | | | | | e | + + + +---------+------+------+-------+ | DILT-XR 240 MG 24 | Take 1 capsule by | | 0 | 10/19 | 06/18 | Disco | | hr capsule | mouth Daily. | | | 06/06 | 06/06 | ntinu | | | | | | 19 | 19 | ed | + + + +---------+------+------+-------+ Active Problems + + + | Problem | Noted Date | + + + | Spinal stenosis of lumbar region | 01/02/2019 | + + + | Tubular adenoma of colon | 11/21/2018 | + + + | Foraminal stenosis of lumbar region | 11/18/2018 | + + + | Lumbar facet joint pain | 11/18/2018 | + + + | Carotid stenosis, symptomatic w/o infarct, right | 10/27/2018 | + + + | TIA (transient ischemic attack) | 10/27/2018 | + + + | Coronary artery disease involving [place] coronary artery of | 10/27/2018 | | [place] heart without angina pectoris | | + + + | Moderate aortic stenosis by prior echocardiogram | 10/27/2018 | + + + | CVA (cerebral vascular accident) | 10/26/2018 | + + + | Neck pain | 09/07/2018 | + + + | History of myocardial infarction | 05/13/2018 | + + + | Dyslipidemia, goal to be determined | 05/12/2018 | + + + | Presence of drug-eluting stent in right coronary artery | 05/12/2018 | + + + | S/P PTCA (percutaneous transluminal coronary angioplasty) | 05/12/2018 | + + + | Hyperlipidemia | 04/25/2018 | + + + | Bilateral carotid artery stenosis | 10/06/2017 | + + + | History of right-sided carotid endarterectomy | 10/06/2017 | + + + | Flat back syndrome | 03/09/2017 | + + + | Lumbar radicular syndrome | 05/08/2015 | + + + | S/P cervical spinal fusion | 06/08/2014 | + + + | Cervical spondylosis with myelopathy | 03/21/2014 | + + + | Cervical kyphosis | 03/21/2014 | + + + | Degenerative disc disease, cervical | 03/21/2014 | + + + | Cervical spinal stenosis | 03/21/2014 | + + + | Neurogenic claudication | 02/21/2014 | + + + | Cervical radiculopathy | 02/21/2014 | + + + | Lesion of plantar nerve | 08/15/2012 | + + + | Peripheral vascular disease, unspecified | 08/15/2012 | + + + + + | Overview: ICD-10 Record update | | | | Overview: | | Overview: | | ICD-10 Record update | + + + + + | Other symptoms involving cardiovascular system | 08/15/2012 | + + + | Impaired fasting glucose | 08/15/2012 | + + + | DEGENERATIVE DISC DISEASE, LUMBAR SPINE | | + + + | THORACIC/LUMBOSACRAL NEURITIS/RADICULITIS UNSPEC | | + + + | PAIN IN THORACIC SPINE | | + + + | Chronic bilateral low back pain without sciatica | | + + + | Chronic cough | | + + + | SOB (shortness of breath) | | + + + | Benign essential hypertension | | + + + | Benign prostatic hyperplasia without urinary obstruction | | + + + | Depression with anxiety | | + + + | Autonomic nervous system disorder | | + + + | Orthostatic hypotension | | + + + | Neuropathy | | + + + | Colon polyps | | + + + | Elevated PSA | | + + + | Gross hematuria | | + + + | Incomplete bladder emptying | | + + + | Intermittent claudication | | + + + Resolved Problems + + + + | Problem | Noted | Resolved | | | Date | Date | + + + + | Cough | 08/15/20 | | | | 12 | 3 | + + + + | MORBID OBESITY | | | | | | 9 | + + + + Encounters +--------+ + + + + | Date | Type | Specialty | Care Team | Description | +--------+ + + + + | 07/19/ | Office | Cardiology | Archie Gould, | Benign essential | | 2018 | Visit | | MD | hypertension | | | | | | (Primary Dx); | | | | | | Coronary artery | | | | | | disease involving | | | | | | [place] coronary | | | | | | artery of [place] | | | | | | heart without angina | | | | | | pectoris; | | | | | | Cerebrovascular | | | | | | accident (CVA), | | | | | | unspecified | | | | | | mechanism (HCC); | | | | | | Moderate aortic | | | | | | stenosis by prior | | | | | | echocardiogram; | | | | | | Orthostatic | | | | | | hypotension; | | | | | | Autonomic nervous | | | | | | system disorder | +--------+ + + + + | 07/05/ | Office | Physical Medicine | Mohit Porter PA-C | Spinal stenosis of | | 2019 | Visit | and Rehabilitation | | lumbar region with | | | | | | neurogenic | | | | | | claudication | | | | | | (Primary Dx); | | | | | | Foraminal stenosis | | | | | | of lumbar region; | | | | | | Lumbar radicular | | | | | | syndrome | +--------+ + + + + | 06/14/ | Office | General Surgery | Jorge Lebron | Atherosclerosis of | | 2018 | Visit | | MD Peacock FACS | arteries of | | | | | | extremities (HCC) | | | | | | (Primary Dx) | +--------+ + + + + | 06/05/ | Telephone | Cardiology | Sydni Padron | Other (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 ) | +--------+ + + + + | 05/10/ | Orders Only | | Provider, | Essential (primary) | | 2018 | | | MD Graham | hypertension; | | | | | | Encounter for | | | | | | therapeutic drug | | | | | | level monitoring; | | | | | | Hypokalemia | +--------+ + + + + from Last 3 Months Immunizations + + + + | Name | Dates Previously Given | Next Due | + + + + | INFLUENZA 66 Y OR >, | 08/15/2018, 10/27/2016, 08/21/2014, | | | TRIVALENT HIGH-DOSE | 08/08/2013, 08/09/2012, 09/11/2011 | | + + + + | INFLUENZA PF 19 Y OR | 08/10/2012 | | | >,TRIVALENT | | | | RECOMBINANT | | | + + + + | INFLUENZA PF 66 Y OR | 08/03/2017 | | | >,TRIVALENT (FLUAD) | | | + + + + | PNEUMOCOCCAL | 10/27/2016, 10/27/2016, 08/22/2015 | | | CONJUGATE 13-VALENT | | | | (PCV13) | | | + + + + | PNEUMOCOCCAL | 08/03/2017, 08/19/2010, 10/05/2006 | | | POLYSACCHARIDE | | | | 23-VALENT (PPSV23) | | | + + + + | TD PF (5 LF TETANUS) | 07/18/2012 | | | (ADOL/ADULT) | | | + + + + | TDAP, (ADOL/ADULT) | 08/08/2013 | | + + + + | TETANUS TOXOID | 07/18/2012 | | | ABSORBED, | | | | (ADOL/ADULT) | | | + + + + | ZOSTER, 1 DOSE | 08/11/2012 | | | (ZOSTAVAX) | | | + + + + Family History + + +------+ + | Medical History | Relation | Name | Comments | + + +------+ + | No known problems | Brother | | | + + +------+ + | No known problems | Child | | | + + +------+ + | Arrhythmia | Father | | | + + +------+ + | Coronary artery | Father | | | | disease | | | | + + +------+ + | Heart attack | Father | | | + + +------+ + | Heart disease | Father | | | + + +------+ + | No known problems | Maternal | | | | | Grandfath | | | | | er | | | + + +------+ + | No known problems | Maternal | | | | | Grandmoth | | | | | er | | | + + +------+ + | Hypertension | Mother | | | + + +------+ + | No known problems | Paternal | | | | | Grandfath | | | | | er | | | + + +------+ + | No known problems | Paternal | | | | | Grandmoth | | | | | er | | | + + +------+ + + +------+ + + | Relation | Name | Status | Comments | + +------+ + + | Brother | | Alive | | + +------+ + + | Child | | | | + +------+ + + | Father | | | | + +------+ + + | Maternal Grandfather | | | | + +------+ + + | Maternal Grandmother | | | | + +------+ + + | Mother | | | | + +------+ + + | Paternal Grandfather | | | | + +------+ + + | Paternal Grandmother | | | | + +------+ + + Social History + +-------+ +--------+------+ [...] recent travel history available. | + + Last Filed Vital Signs + + + + | Vital Sign | Reading | Time Taken | + + + + | Blood Pressure | 138/82 | 07/19/20191004 PDT | + + + + | Pulse | 99 | 07/19/20191004 PDT | + + + + | Temperature | 35.9 C (96.7 F) | 06/14/2019831 PDT | + + + + | Respiratory Rate | 16 | 06/14/2019831 PDT | + + + + | Oxygen Saturation | 97% | 07/19/20191004 PDT | + + + + | Inhaled Oxygen | - | - | | Concentration | | | + + + + | Weight | 102.4 kg (225 lb | 07/19/20191004 PDT | | | 12.8 oz) | | + + + + | Height | 175.3 cm (5' 9") | 07/19/20191004 PDT | + + + + | Body Mass Index | 33.34 | 07/19/20191004 PDT | + + + + Plan of Treatment +--------+ + + + + | Date | Type | Specialty | Care Team | Description | +--------+ + + + + | 08/10/ | Appointment | Radiology | Mohit Porter PA-C | | | 2018 | | | [address] | | | | | | [address] | | | | | | [place] [address] | | | | | | [phone] | | | | | | | | | | | | [place] | | +--------+ + + + + | 02/13/ | Office | Cardiology | Archie Gould, | | | 2019 | Visit | | MD Zofia SALAZAR | | | | | | [place] [address] | | | | | | [id number] | | | | | | | | +--------+ + + + + + + + + + | Health Maintenance | Due Date | Last Done | Comments | + + + + + | Vaccine: Zoster (2 | | 08/11/2012 | | | of 3) | 2 | | | + + + + + | Adult Annual | | | | | Wellness Visit | 5 | | | + + + + + | Vaccine: Influenza | | 08/15/2018, 08/03/2017, | | | (#1) | 9 | 10/27/2016, Additional history | | | | | exists | | + + + + + | Vaccine: | | 08/08/2013, 07/18/2012, | | | Dtap/Tdap/Td (2 - | 3 | 07/18/2012 | | | Td) | | | | + + + + + | Vaccine: | Completed | 08/03/2017, 10/27/2016, | | | Pneumococcal 65+ | | 08/22/2015, Additional history | | | Low/Medium Risk | | exists | | + + + + + Implants + +-------+--------+ +--------+--------+--------+ | Implanted | Type | Area | Manufacture | Device | Shelf | Model | | | | | r | | Expira | / | | | | | | Identi | tion | Serial | | | | | | fier | Date | / Lot | + +-------+--------+ +--------+--------+--------+ | Xgrft Vascu-Guard Ptch 0.8x8 | Graft | Right: | JOSE | | 05/18/ | VG-[id number] | | - [id number]: | | Neck | BIOSCIENCE | | 2023 | 8N | | Qty: 1 on 10/27/2018 by | | | - JT | | | /[id number] | | Jorge Lebron MD, [facility] | | | | | | [id number] | | | | | | | | 1 | | | | | | | | /[id number] | | | | | | | | [id number] | | | | | | | | 637 | + +-------+--------+ +--------+--------+--------+ | Alllakisha Olivo Pls 1cc Aseptic | | Anteri | OSTEOTECH - | | 01/25/ | [id number] | | - [id number]: Qty: | | or: | OSTT | | 2015 | | | 1 on 05/07/2014 by Ryan, | | Spine | | | | /[id number] | | Edson Rousseau MD | | Nicholas | | | | 6-083 | | | | al | | | | / | + +-------+--------+ +--------+--------+--------+ | Allograft Lordotic [id number] - | | Anteri | SOFAMOR | | 02/07/ | [id number] | | [id number]: Qty: 1 on | | or: | DANEK - DIV | | 2016 | | | 05/07/2014 by Edson Davis, | | Spine | [employer] | | | /[id number] | [place] | Davin Peterson | - SFDK | | | 32 | | | | al | | | | /[id number] | | | | | | | | 6400 | + +-------+--------+ +--------+--------+--------+ | Allograft Lordotic [id number] - | | Anteri | SOFAMOR | | 11/21/ | [id number] | | [id number]: Qty: 1 on | | or: | DANEK - DIV | | 2016 | | | 05/07/2014 by Edson Davis, | | Spine | [employer] | | | /[id number] | | MD | | Cervic | - SFDK | | | 67 | | | | al | | | | /[id number] | | | | | | | | 9854 | + +-------+--------+ +--------+--------+--------+ | Allograft Lordotic [id number] - | | N/A: | SOFAMOR | | 01/16/ | [id number] | | [id number]: Qty: 1 on | | Spine | DANEK - DIV | | 2016 | | | 05/07/2014 by Edson Davis, | | Cervic | [employer] | | | /[id number] | | MD | | al | - SFDK | | | 97 | | | | | | | | /[id number] | | | | | | | | 9677 | + +-------+--------+ +--------+--------+--------+ | Allograft Lordotic [id number] - | | Anteri | SOFAMOR | | 02/07/ | [id number] | | [id number]: Qty: 1 on | | or: | DANEK - DIV | | 2016 | | | 05/07/2014 by Edson Davis, | | Spine | [employer] | | | /[id number] | | MD | | Cervic | - SFDK | | | 42 | | | | al | | | | /[id number] | | | | | | | | 6400 | + +-------+--------+ +--------+--------+--------+ | Screw Slf-Drl F/A 4.5x15mm - | | Anteri | SOFAMOR | | | [id number] | | [id number]: Qty: 2 on | | or: | DANEK - DIV | | | | | 05/07/2014 by Edson Davis, | | Spine | [employer] | | | | | MD | | Cervic | - SFDK | | | | | | | al | | | | | + +-------+--------+ +--------+--------+--------+ | Screw Slf-Drl V/A 4.0x15mm - | | Anteri | SOFAMOR | | | [id number] | | [id number]: Qty: 4 on | | or: | DANEK - DIV | | | | | 05/07/2014 by Edson Davis, | | Spine | [employer] | | | | | MD | | Cervic | - SFDK | | | | | | | al | | | | | + +-------+--------+ +--------+--------+--------+ | Screw Slf-Drl V/A 4.0x16mm - | | Anteri | SOFAMOR | | | [id number] | | [id number]: Qty: 4 on | | or: | DANEK - DIV | | | 6 / / | | 05/07/2014 by Edson Davis, | | Spine | [employer] | | | | | | | Nicholas | - SFDK | | | | | | | al | | | | | + +-------+--------+ +--------+--------+--------+ | Plate Ant Artas Cerv | | Anteri | [employer] - | | | [id number] | | 82.5mm - [id number]: | | or: | MEDT | | | 2 / / | | Qty: 1 on 05/07/2014 by Ryan | Davin Spine | | | | | | Edson Rousseau MD | | Nicholas | | | | | | | | al | | | | | + +-------+--------+ +--------+--------+--------+ Results Not on filefrom Last 3 Months Insurance + +--------+ +--------+ +---------+--------+ | Payer | Benefi | Subscriber | Effect | Phone | Address | Type | | | t Plan | ID | mart | | | | | | / | | Dates | | | | | | Group | | | | | | + +--------+ +--------+ +---------+--------+ | MEDICARE | MEDICA | [id number] | 04/17/20 | [phone] | | Medica | | | RE | | 06-Pre | 5 | | re | | | PART A | | sent | | | | | | AND B | | | | | | + +--------+ +--------+ +---------+--------+ | MEDICARE | MEDICA | [id number] | 04/17/20 | [phone] | | Medica | | | RE | | 06-Pre | 5 | | re | | | PART A | | sent | | | | | | AND B | | | | | | + +--------+ +--------+ +---------+--------+ | [employer] | [place] | [id number] | 05/18/20 | [phone] | | Indemn | | | OF | | 18-Pre | 0 | | ity | | | [employer] | | sent | | | | | | MDCR | | | | | | | | SUPPL | | | | | | + +--------+ +--------+ +---------+--------+ | [employer] | [place] | [id number] | 05/18/20 | [phone] | | Indemn | | | OF | | 18-Pre | 0 | | ity | | | [employer] | | sent | | | | | | MDCR | | | | | | | | SUPPL | | | | | | + +--------+ +--------+ +---------+--------+ + +--------+ +--------+ + + | Guarantor Name | Accoun | Relation to | Date | Phone | Billing Address | | | t Type | Patient | of | | | | | | | | | | + +--------+ +--------+ + + | Russ Alvarado | Person | Self [birth year] | [address] | | | al/Fam | | 1940 | [phone] | [place], [place] | | | marcio | | | 1 (Home) | [phone] | + +--------+ +--------+ + + | Russ Alvarado | Person | Self | [birth year] | [address] | | | al/Fam | | 1940 | [phone] | [place], [place] | | | [place] | | | 1 (Home) | [phone] | + +--------+ +--------+ + + Advance Directives Patient has advance care planning documents, and code status on file. For more information, please contact:[facility] irma [place] [address] + + + + + | Code Status | Date | Date | Comments | | | Activated | Inactivated | | + + + + + | Full Code | 10/28/2018 | 10/28/2018 | | | | 7:29 | 19:53 | | + + + + + + + + +---+ | | | | | + + + +---+ | Full Code | 10/26/2018 | 10/27/2018 | | | | 18:04 | 22:46 | | + + + +---+ + + + +---+ | | | | | + + + +---+ | Full Code | 05/07/2014 | 05/08/2014 | | | | 12:36 | 11:27 | | + + + +---+
--- OUTSIDE RECORDS SUMMARY | ~2019-07-26 | XMS | Encounter Summary ---
Demographics + + + | Address | [address] | | | [place] [address] | + + + | Home Phone | | + + + | Preferred Language | Unknown | + + + | Marital Status | | + + + | Baptism Affiliation | 1001 | + + + | Race | Unknown | + + + | Ethnic Group | Unknown | + + + Author + + + | Author | [facility] | | | and [place] | + + + | Organization | [facility] | | [...] Team Providers + +------+ + | Care Motor Equipment Commanding Officer Name | Role | Phone | + +------+ + | Franky Avalos MD | PCP | | + +------+ + Reason for Referral Diagnostic/Screening (Routine) + +--------+ + + + + | Status | Reason | Specialty | Diagnoses / | Referred By | Referred To | | | | | Procedures | Contact | Contact | + +--------+ + + + + | Authorizatio | | Radiology | Diagnoses | Luis Fernando | [facility] | | n not | | | Benign | Archie MD | [address] | | Required | | | essential | [address] | | | | | hypertension | [facility] | [place], [place] | | | | | Coronary | [place] | [address] | | | | | artery | [place], [place] | Phone: | | | | | disease | [address] | [phone] | | | | | involving | Phone: | Fax: | | | | | [place] | [phone] | [phone] | | | | | coronary | Fax: | | | | | | artery of | [phone] | | | | | | [place] heart | | | | | | | without | | | | | | | angina | | | | | | | pectoris | | | | | | | Cerebrovascu | | | | | | | lar accident | | | | | | | (CVA), | | | | | | | unspecified | | | | | | | mechanism | | | | | | | (HCC) | | | | | | | Moderate | | | | | | | aortic | | | | | | | stenosis by | | | | | | | prior | | | | | | | echocardiogr | | | | | | | am | | | | | | | Orthostatic | | | | | | | hypotension | | | | | | | Procedures | | | | | | | ECHO | | | | | | | Complete | | | + +--------+ + + + + Reason for Visit + + + | Reason | Comments | + + + | Follow-up | | + + + Encounter Details +--------+---------+ + + + | Date | Type | Department | Care Team | Description | +--------+---------+ + + + | 07/19/ | Office | [facility] | Archie Villanueva, | Benign essential | | 2019 | Visit | CARDIOLOGY KAREN | [address] | hypertension | | | | [address] | [place], [place] | (Primary Dx); | | | | [address] [place] [address] | [id number] | Coronary artery | | | | [place] | | disease involving | | | | [address] | | [place] coronary | | | | [phone] | | artery of [place] | | | | | | heart [...] | | | | system disorder | +--------+---------+ + + + Social History [...] 07/19/20191004 PDT | + + + + documented [...] documented as of this encounter Progress Notes Archie Villanueva MD - 07/19/2019 1015 PDT Date of visit: 07/19/2019 Primary Care Physician: Franky Avalos MD CHIEF COMPLAINT: Chief Complaint Patient presents with Follow-up HISTORY OF PRESENT ILLNESS: Russ is 79 y.o. here for here for follow up visit. History of coronary artery disease. Has been following up for moderate aortic stenosis. Previous right endarterectomy. Continues to have orthostatic dizziness, had multiple events of hypertensive emergencies, h as been monitoring of his blood pressure at home. For some reason even from previous note patient was supposed to be on diltiazem apparently he was taking both diltiazem and metoprolol, eventually diltiazem was stopped and he was wea james off metoprolol secondary to his orthostatic dizziness. Started having symptoms with indira vated blood pressure above 200 systolic. His symptoms were associated sometimes with confus ion. Was evaluated in the emergency room on July 13, was started on clonidine and meto prolol was stopped. Since then he had used 2 clonidine pills. His blood pressure continues to be elevated with sometimes low numbers. Previously hospitalized in April with 2017 secondary to chest pain at that time coronary ang iogram was done and showed stable coronary artery disease with patent stent in the proximal RCA. Lost significant weight. Baseline weight 275 pounds currently 249. Overall limited activity level due to back and hip pain. Gets bilateral hip injection for p ain relief. Past medical history, SH, FH, and medications were reviewed in the chart. Medications: Outpatient Encounter Medications as of 07/19/2019 Medication Sig Dispense Refill acetaminophen (TYLENOL) 650 [...] facility-administered encounter medications on file as of 07/19/2019. Allergies Allergies Allergen Reactions Morphine Other (See Comments) Hallucinations Lisinopril Other (See Comments) Cough Dizziness COUGH Losartan Nausea Only Continuous nausea and irritability REVIEW OF SYSTEMS: Constitutional: Positive for fatigue weight has been stable. HEENT: Negative for nosebleeds, ear discharge, nasal congestion or soar throat. Eyes: Negative for visual disturbance, redness, or secretion. Respiratory: Negative for cough, sputum production, hemoptysis, wheezing. Cardiovascular: HPI. Gastrointestinal: Negative for nausea, vomiting, diarrhea, abdominal pain and blood in stoo l. Genitourinary: Negative for dysuria or hematuria. Still for prostatic hypertrophy. Musculoskeletal: Chronic arthritic pain follows up with pain management. Skin: Negative for rash. Neurological: Still for orthostatic dizziness. No numbness. No recent falls. No slurred spe ech. Hematological: No significant bruising. Psychiatric/Behavioral: No depression or anxiety. PHYSICAL EXAM Vital Signs: BP 138/82 | Pulse 99 | Ht 1.753 m (5' 9") | Wt 102.4 kg (225 lb 12.8 oz) | SpO2 97% | BMI 33.34 kg/m GENERAL APPEARANCE: Alert, oriented, cooperative, no distress, appears stated age. HEENT: Extraocular movements were intact. No jaundice. Pupiles round and reactive. NECK: No JVD, lymphadenopathy. Carotid upstrokes normal. No carotid bruit heard. CARDIAC: Regular rhythm and rate. There is normal S1 and diminished S2. Systolic murmur in the right upper sternal border CHEST: Normal bilateral symmetrical chest excursion.ackles or wheezing. No evidence of dull ness. ABDOMEN: Soft.No tenderness or guarding. No palpable organs. Active bowel sounds. EXTREMITIES: No lower extremities edema, cyanosis or clubbing. NEURO: Alert and oriented times three with no focal deficit. Cranial nerves are grossly no rmal. SKIN: Warm and dry. No rash. Psych: Normal affect and mood. DATA 07/13/2019 Bili BC 4.4, hemoglobin 12.7, platelets 114, sodium 138, potassium 3.4, chloride 105, bicar b 24, BUN 19, creatinine 1.02. AST 17, ALT 15, alk phos 41. Lab Results Component Value Date/Time NA 137 10/28/2018 07:55 NA 140 10/27/2018 05:45 NA 140 10/26/2018 10:55 K 3.9 10/28/2018 07:55 K 3.8 10/27/2018 05:45 K 4.0 10/26/2018 10:55 CO2 23 (L) 10/28/2018 07:55 CO2 24 10/27/2018 05:45 CO2 22 (L) 10/26/2018 10:55 BUN 14 10/28/2018 07:55 BUN 12 10/27/2018 05:45 BUN 15 10/26/2018 10:55 CREA 0.94 10/28/2018 07:55 CREA 1.03 10/27/2018 05:45 CREA 1.09 10/26/2018 10:55 CALCIUM 8.2 (L) 10/28/2018 07:55 CALCIUM 8.7 10/27/2018 05:45 CALCIUM 9.1 10/26/2018 10:55 MG 2.4 04/26/2018 05:44 MG 2.2 04/25/2018 18:28 Lab Results Component Value Date/Time WBC 7.1 10/28/2018 07:55 WBC 4.4 10/27/2018 05:45 WBC 5.6 10/26/2018 10:55 HGB 11.1 (L) 10/28/2018 07:55 HGB 13.2 (L) 10/27/2018 05:45 HGB 13.7 10/26/2018 10:55 HCT 32.8 (L) 10/28/2018 07:55 HCT 39.5 (L) 10/27/2018 05:45 HCT 40.3 10/26/2018 10:55 MCV 97.6 10/28/2018 07:55 MCV 97.1 10/27/2018 05:45 MCV 95.5 10/26/2018 10:55 LABPLAT 117 (L) 04/26/2018 05:44 LABPLAT 121 (L) 04/25/2018 18:28 LABPLAT 116 (L) 10/07/2017 09:33 Lab Results Component Value Date ALT 15 10/26/2018 ALT 19 04/25/2018 CHOL 125 (L) 10/27/2018 CHOL 122 04/26/2018 CHOL 142 10/07/2017 TRIG 65 10/27/2018 TRIG 70 04/26/2018 TRIG 72 10/07/2017 HDL 44 10/27/2018 HDL 48 04/26/2018 HDL 83 10/07/2017 LDLEX 60 04/26/2018 LDLEX 45 10/07/2017 GLUF 97 04/26/2018 GLUF 95 04/25/2018 EC07/13/[address] [facility] reviewed showed normal sinus rhythm with right bundle branch bl ock. 11/12/2018 Ordered and reviewed by myself showed normal sinus rhythm with right bundle branch block Last Echo:11/06/2018 From [facility] reported with normal LV size and function EF 65%. Moderate aortic stenosis mean gradient 23 mmHg. 09/14:([facility]) TDS: EF 60-65%. LV normal size and wall thickness Mild diastolic dysfunction, grade 1. RV normal in size and function. Aortic valve moderately calcified.Moderate aortic stenosis with peak/mean pressure gradient of 37.47 mmHg / 20.56 mmHg, aortic valve area by continuity equation is 1.5cm.maximum velocity across the aortic valve is 3.06m/s LVOT Area: 3.55 cm2 LVOT Diam: 2.12 cm. New Mild mitral stenosis, MG of 5.7 mmHg 05/03/2018 TDS. Normal LV size, mild left ventricular hypertrophy with normal systolic function EF 60- 65%. RV mildly enlarged with normal systolic function. Aortic valve is calcified with moderate s tenosis mean gradient of 18 mmHg. Last Stress test: Last Cath: Last angiogram:04/26/2018 1. Mild coronary artery disease 2. Patent stent in the proximal RCA with no significant residual disease 3. Hyperkinetic left ventricle with ejection fraction of 70% 4. 20 mm peak to peak gradient between LV/aorta dictating mild to moderate aortic stenosis 10/07/2017: Normal right heart pressures anemic dynamics. Moderate aortic stenosis by echo and confirmed by left to right heart catheter. Severe single-vessel coronary artery disease proximal RCA. Angioplasty RCA with 2 overlap ping JULIUS( Resolute Integrity 3 x 18 mm and 4 x 12 mm.) Last US carotid: ASSESSMENT: Patient is 79 y.o. with 1. Coronary artery disease states post PCI to RCA. Symptoms 2. Moderate aortic stenosis with no signs of congestive heart failure. 3. Orthostatic hypotension. 4. Right bundle branch block. 5. Chronic back pain. 6. Obesity. 7. Hypertension. 8. Chronic kidney disease Stage III. 9. Severe obstructive sleep apnea on CPAP therapy. Plan: Discussed the case with Dr. Avalos over the phone. Patient has orthostatic hypotension symptoms however needs treatment for hypertension. He is currently on finasteride for prostatic hypertrophy. Advised to start low-dose metoprolol 25 mg once daily, may need to 50 mg again. We will continue with medical management for the episodes of orthostatic hypotension. Clon idine can be used as needed only. Previous treatments amlodipine, hydrochlorothiazide, indapamide all caused worse symptoms. 1. Continue with aspirin.. 2. Continue monitoring blood pressure at home. 3. We will continue monitoring his symptomology regarding his aortic stenosis. Echocardiogr am for next visit. 4. Discussed with the patient weight loss and lifestyle modification. More 50% of the time was spent counseling and coordinating care with the patient *This report has been prepared using a voice recognition system. The report was reviewed fo r accuracy, however, sound-alike word errors, addition and/or deletions may occur. If there is any question about this report please contact me. Archie Villanueva MD, MPH documented in this enc ounter Plan of Treatment +--------+ + + + + | Date | Type | Specialty | Care Team | Description | +--------+ + + + + | 08/10/ | Appointment | Radiology | Mohit Porter PA-C | | | 2018 | | | [address] | | | | | | [place] [address] | | | | | | [place] [address] | | | | | | [phone] | | | | | | | | | | | | [employer] | | +--------+ + + + + | 02/13/ | Office | Cardiology | Archie Villanueva, | | | 2019 | Visit | | [address] | | | | | | [place] | | | | | | [address] | | | | | | | | +--------+ + + + + + +--------+ + + | Name | Priori | Associated Diagnoses | Order Schedule | | | ty | | | + +--------+ + + | ECHO Complete | Routin | Benign essential | Expected: | | | e | hypertension | 07/19/2019, Expires: | | | | Coronary artery | 07/19/2020 | | | | disease involving | | | | | [place] coronary | | | | | artery of [place] | | | | | heart without angina | | | | | pectoris | | | | | Cerebrovascular | | | | | accident (CVA), | | | | | unspecified | | | | | mechanism (HCC) | | | | | Moderate aortic | | | | | stenosis by prior | | | | | echocardiogram | | | | | Orthostatic | | | | | hypotension | | + +--------+ + + documented as of this encounter Visit Diagnoses + + | Diagnosis | + + | Benign essential hypertension - Primary Essential hypertension, benign | + + | Coronary artery disease involving [place] coronary artery of [place] heart without | | angina pectoris | + + | Cerebrovascular accident (CVA), unspecified mechanism (HCC) | + + | Moderate aortic stenosis by prior echocardiogram Aortic valve disorders | + + | Orthostatic hypotension | + + | Autonomic nervous system disorder Unspecified disorder of autonomic nervous system | + + documented in this encounter
--- OUTSIDE RECORDS SUMMARY | ~2019-07-26 | XMS | Clinical Summary ---
Demographics + + + | Address | [address] | | | [place] [address] | + + + | Home Phone | | + + + | Preferred Language | Unknown | + + + | Marital Status | | + + + | Judaism Affiliation | Unknown | + + + | Race | Unknown | + + + | Ethnic Group | Unknown | + + + Author + + + | Author | [facility] (Historical as of | | | 06-03-19) | + + + | Organization | [facility] (Historical as of | | | 06-03-19) | + + + | Address | Unknown | + + + | Phone | Unavailable | + + + Support + + +---------+ + | Name | Relationship | Address | Phone | + + +---------+ + | Ina Alvarado | ECON | Unknown | | + + +---------+ + Care Team Providers + +------+ + | Care Stockroom Worker Name | Role | Phone | + +------+ + | Franky Avalos MD | PP | | + +------+ + Allergies + + + + + + | Active Allergy | Reactions | Severity | Noted | Comments | | | | | Date | | + + + + + + | Lisinopril | Cough | Low | 03/10/20 | | | | | | 17 | | + + + + + + | Losartan | Nausea Only | Low | 10/14/20 | Continuous nausea | | | | | 17 | and irritability | + + + + + + | Losartan Potassium | Nausea Only | Low | 10/14/20 | Continuous nausea | | | | | 17 | and irritability | + + + + + + | Morphine | Hallucinations | Medium | 04/25/20 | | | | | | 18 | | + + + + + + Current Medications + + +--------+---------+------+------+-------+ | Prescription | Sig. | Disp. | Refills | Star | End | Statu | | | | | | t | Date | s | | | | | | Date | | | + + +--------+---------+------+------+-------+ | finasteride | Take 5 mg by mouth | | | | | Activ | | (PROSCAR) 5 MG | daily. | | | | | e | | tablet | | | | | | | + + +--------+---------+------+------+-------+ | simvastatin | Take 20 mg by mouth | | | | | Activ | | (ZOCOR) 20 MG tablet | nightly. | | | | | e | + + +--------+---------+------+------+-------+ | acetaminophen | Take 650 mg by mouth | | | | | Activ | | (TYLENOL) 650 MG CR | every 8 (eight) | | | | | e | | tablet | hours as needed for | | | | | | | | Pain. | | | | | | + + +--------+---------+------+------+-------+ | aspirin 81 MG EC | Take 81 mg by mouth | | | | | Activ | | tablet | daily with | | | | | e | | | breakfast. | | | | | | + + +--------+---------+------+------+-------+ | Misc Natural | Take 400 mg by mouth | | | | | Activ | | Products (TURMERIC | daily. | | | | | e | | CURCUMIN) CAPS | | | | | | | + + +--------+---------+------+------+-------+ | nitroGLYCERIN | Place 1 tablet under | 25 | 3 | 07/2 | | Activ | | (NITROSTAT) 0.4 MG | the tongue every 5 | tablet | | 6/20 | | e | | SL tablet | (five) minutes as | | | 18 | | | | | needed for Chest | | | | | | | | pain. | | | | | | + + +--------+---------+------+------+-------+ | FLUoxetine | Take 20 mg by mouth. | | | | | Activ | | (PROZAC) 20 MG | | | | | | e | | capsule | | | | | | | + + +--------+---------+------+------+-------+ | FLUoxetine | Take 1 capsule by | | | 03/ | | Activ | | (PROZAC) 10 MG | mouth daily. | | | 6/20 | | e | | capsule | | | | 19 | | | + + +--------+---------+------+------+-------+ | cyanocobalamin | Take 1,000 mcg by | | | | | Activ | | (VITAMIN B-12) 1000 | mouth daily. | | | | | e | | MCG tablet | | | | | | | + + +--------+---------+------+------+-------+ | DILT-XR 240 MG 24 | Take 1 capsule by | | | 04/1 | | Activ | | hr capsule | mouth daily. | | | 0/20 | | e | | | | | | 19 | | | + + +--------+---------+------+------+-------+ Active Problems + + + | Problem | Noted Date | + + + | History of right-sided carotid endarterectomy | 01/09/2019 | + + + | CVA (cerebral vascular accident) (HCC) | 10/26/2018 | + + + | Tubular adenoma of colon | 05/13/2018 | + + + | S/P PTCA (percutaneous transluminal coronary angioplasty) | 05/12/2018 | + + + | Presence of drug-eluting stent in right coronary artery | 05/12/2018 | + + + | Dyslipidemia, goal to be determined | 05/12/2018 | + + + | Hyperlipidemia | 04/25/2018 | + + + | Impaired fasting glucose | 04/25/2018 | + + + | Coronary artery disease of [place] artery of [place] heart with | 02/02/2018 | | stable angina pectoris (HCC) | | + + + | Moderate aortic stenosis by prior echocardiogram | 10/06/2017 | + + + | Bilateral carotid artery stenosis | 10/06/2017 | + + + | History of left-sided carotid endarterectomy | 10/06/2017 | + + + | Degenerative disc disease, lumbar | 03/10/2017 | + + + | Hypertension | 03/10/2017 | + + + | Morbid obesity (HCC) | 03/10/2017 | + + + | Lumbar radicular syndrome | 05/08/2015 | + + + | Cervical spinal stenosis | 03/21/2014 | + + + | Cervical radiculopathy | 02/21/2014 | + + + | Peripheral vascular disease (HCC) | 08/15/2012 | + + + + + | Overview: Overview: | | ICD-10 Record update | + + Resolved Problems + + + + | Problem | Noted | Resolved | | | Date | Date | + + + + | History of TIA (transient ischemic attack) and stroke | 01/10/20 | | | | 19 | 9 | + + + + | History of myocardial infarction | 05/13/20 | | | | 18 | 9 | + + + + | Chest pain | 04/25/20 | | | | 18 | 8 | + + + + | Mild mitral stenosis by prior echocardiogram | 10/06/20 | | | | 17 | 8 | + + + + | Dyspnea on exertion | 10/06/20 | | | | 17 | 8 | + + + + | Angina at rest (HCC) | 10/06/20 | | | | 17 | 8 | + + + + | Mixed hyperlipidemia | 10/06/20 | | | | 17 | 8 | + + + + Immunizations + + + + | Name | Dates Previously Given | Next Due | + + + + | Influenza, PF | 08/10/2012 | | | Recombinant, | | | | Trivalent (Flublok) | | | + + + + | Pneumococcal | 08/19/2010 | | | Polysaccharide | | | | 23-valent | | | + + + + | Td | 07/18/2012 | | + + + + | Zoster (Live) | 08/11/2012 | | + + + + Family History + + +------+ + | Medical History | Relation | Name | Comments | + + +------+ + | High cholesterol | Brother | | | + + +------+ + | Heart disease | Father | | | + + +------+ + | Hypertension | Mother | | | + + +------+ + + +------+ + + | Relation | Name | Status | Comments | + +------+ + + | Brother | | Alive | CAD- stent placement x 2 | + +------+ + + | Father | | | heart disease,CHF | | | | (Age | | | | | 74) | | + +------+ + + | Mother | | | HTN | | | | (Age | | | | | 92) | | + +------+ + + Social [...] +---------+ + | Yes | | | occ | + + +---------+ + + + + | Sex Assigned at | Date Recorded | | | | + + + | Not on file | | + + + Last Filed Vital Signs + + + + | Vital Sign | Reading | Time Taken | + + + + | Blood Pressure | 112/60 | 01/25/2019 11:25 AM PDT | + + + + | Pulse | 89 | 01/25/2019 11:25 AM PDT | + + + + | Temperature | 36.6 C (97.8 F) | 04/26/2018 3:19 PM PDT | + + + + | Respiratory Rate | 20 | 01/09/2019 1:07 PM PDT | + + + + | Oxygen Saturation | 94% | 01/25/2019 11:25 AM PDT | + + + + | Inhaled Oxygen | - | - | | Concentration | | | + + + + | Weight | 112.9 kg (249 lb) | 01/25/2019 11:25 AM PDT | + + + + | Height | 175.3 cm (5' 9") | 01/25/2019 11:25 AM PDT | + + + + | Body Mass Index | 36.77 | 01/25/2019 11:25 AM PDT | + + + + Plan of Treatment + + + + + | Health Maintenance | Due Date | Last Done | Comments | + + + + + | Vaccine: | | 08/19/2010 | | | Pneumococcal 65+ | 1 | | | | Low/Medium Risk (2 | | | | | of 2 - PCV13) | | | | + + + + + | Vaccine: | | 07/18/2012 | | | Dtap/Tdap/Td (1 - | 2 | | | | Tdap) | | | | + + + + + | Vaccine: Zoster (2 | | 08/11/2012 | | | of 3) | 2 | | | + + + + + | Vaccine: Influenza | | 08/10/2012 | | | (#1) | 9 | | | + + + + + Implants + +-------+--------+ +--------+--------+--------+ | Implanted | Type | Area | Manufacture | Device | Expira | Model | | | | | r | | tion | / | | | | | | Identi | Date | Serial | | | | | | fier | | / Lot | + +-------+--------+ +--------+--------+--------+ | Resolute Rahul 4 X | Stent | Carter | [employer] | | 03/08/ | [id number] | | 10/07/2017Implanted: Qty: | | ry | | | 2018 | [id number] | | 1 on 10/07/2017 by Bret, | | | | | | / | | [place] | | | | | | /[id number] | | | | | | | | [id number] | + +-------+--------+ +--------+--------+--------+ | Resolute Rahul 3 X | Stent | Carter | [employer] | | 12/16/ | [id number] | | -10/07/2017Implanted: Qty: | | ry | | | 2017 | [id number] | | 1 on 10/07/2017 by Bret, | | | | | | / | | [place] | | | | | | /[id number] | | | | | | | | [id number] | + +-------+--------+ +--------+--------+--------+ Results Not on filefrom Last 3 Months Insurance + +--------+ +------+-------+ + | Payer | Benefi | Subscriber | Type | Phone | Address | | | t Plan | ID | | | | | | / | | | | | | | Group | | | | | + +--------+ +------+-------+ + | MEDICARE | MEDICA | [id number] | | | [address] | | | RE | | | | [place] [address] | | | IP-OP | | | | | + +--------+ +------+-------+ + | [employer] [place] | MUTUAL | [id number] | | | | | | [place] | | | | | | | [place] | | | | | + +--------+ +------+-------+ + + +--------+ +--------+ + + | Guarantor Name | Accoun | Relation to | Date | Phone | Billing Address | | | t Type | Patient | of | | | | | | | | | | + +--------+ +--------+ + + | ZAIRA ALVARADO | Person | Self [birth year] Home: | 1905 [address] | | | al/Fam | | 1940 | [phone] | [place] | | | [place] | | | [phone] | [phone] | + +--------+ +--------+ + +
--- OUTSIDE RECORDS SUMMARY | ~2019-07-26 | XMS | Clinical Summary ---
Demographics + + + | Address | [address] | | | [place] [address] | + + + | Home Phone | | + + + | Preferred Language | Unknown | + + + | Marital Status | | + + + | Mormon Affiliation | 1001 | + + + | Race | Unknown | + + + | Ethnic Group | Unknown | + + + Author + + + | Author | [facility] | | | and [place] | + + + | Organization | [facility] | | | and [place] | + + + | Address | Unknown | + + + | Phone | Unavailable | + + + Support + + +---------+ + | Name | Relationship | Address | Phone | + + +---------+ + | Ina Alvardao | ECON | Unknown | | + + +---------+ + Care Team Providers + +------+ + | Care Java Groovy Developer Name | Role | Phone | + [...] + + | 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 | | + [...] involving | | | | | | lime coronary | | | | | | artery of lime | | | | | | heart [...] | | 2018 | | | D, Case Making Machine Operator | wanted sooner | | | [...] | | | | | | [place] [address] | | | | | | [phone] | | | | | | | | | | | | Measurement SupervisorFaiza | | +--------+ + + + + | 02/13/ | Office | Cardiology | Archie Gould, | | | 2019 | Visit | | MD Zofia SALAZAR | | | | | | [place] | | | | | | [id number] | | | | | | | [...] | 05/18/ | VG-010 | | - [id number]: | | Neck | BIOSCIENCE | | 2023 | 8N | | Qty: 1 on 10/27/2018 by | | | - JT | | | /[id number] | | Jorge Lebron MD, [facility] | | | | | | [id number] | | | | | | | | 1 | | | | | | | | /[id number] | | | | | | | | [id number] | | | | | | | | 637 | + +-------+--------+ +--------+--------+--------+ | Alllakisha Olivo Pls 1cc Aseptic | | Anteri | OSTEOTECH - | | 01/25/ | [id number] | | - [id number]: Qty: | | or: | OSTT | | 2015 | | | 1 on 05/07/2014 by Ryan, | | Spine | | | | /[id number] | | Edson Rousseau MD | | Nicholas | | | | 6-083 | | | | al | | | | / | + +-------+--------+ +--------+--------+--------+ | Allograft Lordotic [id number] - | | Anteri | SOFAMOR | | 02/07/ | [id number] | | [id number]: Qty: 1 on | | or: | DANEK - DIV | | 2016 | | | 05/07/2014 by Edson Davis, | | Spine | [employer] | | | /[id number] | [place] | Davin Peterson | - SFDK | | | 32 | | | | al | | | | /[id number] | | | | | | | | 6400 | + +-------+--------+ +--------+--------+--------+ | Allograft Lordotic [id number] - | | Anteri | SOFAMOR | | 11/21/ | [id number] | | [id number]: Qty: 1 on | | or: | DANEK - DIV | | 2016 | | | 05/07/2014 by Edson Davis, | | Spine | [employer] | | | /[id number] | | MD | | Cervic | - SFDK | | | 67 | | | | al | | | | /[id number] | | | | | | | | 9854 | + +-------+--------+ +--------+--------+--------+ | Allograft Lordotic [id number] - | | N/A: | SOFAMOR | | 01/16/ | [id number] | | [id number]: Qty: 1 on | | Spine | DANEK - DIV | | 2016 | | | 05/07/2014 by Edson Davis, | | Cervic | [employer] | | | /[id number] | | MD | | al | - SFDK | | | 97 | | | | | | | | /[id number] | | | | | | | | 9677 | + +-------+--------+ +--------+--------+--------+ | Allograft Lordotic [id number] - | | Anteri | SOFAMOR | | 02/07/ | [id number] | | [id number]: Qty: 1 on | | or: | DANEK - DIV | | 2016 | | | 05/07/2014 by Edson Davis, | | Spine | [employer] | | | /[id number] | | MD | | Cervic | - SFDK | | | 42 | | | | al | | | | /34965 | | | | | | | | 6400 | + +-------+--------+ +--------+--------+--------+ | Screw Slf-Drl F/A 4.5x15mm - | | Anteri | SOFAMOR | | | [id number] | | [id number]: Qty: 2 on | | or: | [...] | Anteri | SOFAMOR | | | [id number] | | [id number]: Qty: 4 on | | or: | [...] | Anteri | SOFAMOR | | | [id number] | | [id number]: Qty: 4 on | | or: | DANEK - DIV | | | 6 / / | | 05/07/2014 by Edson Davis, | | Spine | [employer] | | | | | | | Nicholas | - SFDK | | | | | | | al | | | | | + +-------+--------+ +--------+--------+--------+ | Plate Ant Arnold Line Cerv | | Anteri | [employer] - | | | [id number] | | 82.5mm - [id number]: | | or: | MEDT | | [...] +--------+ +---------+--------+ | MEDICARE | MEDICA | [id number] | 04/17/20 | [phone] | | Medica | | | RE | | 06-Pre | 5 | | re | | | PART A | | sent | | | | | | AND B | | | | | | + +--------+ +--------+ +---------+--------+ | MEDICARE | MEDICA | [id number] | 04/17/20 | [phone] | | Medica | | | RE | | 06-Pre | 5 | | re | | | PART A | | sent | | | | | | AND B | | | | | | + +--------+ +--------+ +---------+--------+ | [employer] | [employer] | [id number] | 05/18/20 | [phone] | | Indemn | | | OF | | 18-Pre | 0 | | ity | | | [employer] | | sent | | | | | | MDCR | | | | | | | | SUPPL | | | | | | + +--------+ +--------+ +---------+--------+ | [employer] | [employer] | [id number] | 05/18/20 | [phone] | | Indemn | | | OF | | 18-Pre | 0 | | ity | | | [employer] | | sent | | | | [...] [place] | | | 1 (Home) | [phone] | + +--------+ +--------+ + + | Russ Alvarado | Person | Self | [birth year] | [address] | | | al/Fam | | 1940 | [phone] | [place], [place] | | | marcio | | | 1 (Home) | [phone] | + +--------+ +--------+ + + Advance Directives Patient has advance care planning documents, and code status on file. For more information, please contact:[facility] irma LimonCopenANITA [address] + + + + + | Code [...]
--- OUTSIDE RECORDS SUMMARY | ~2019-07-26 | XMS | Encounter Summary ---
Demographics + + + | Address | [address] | | | [place] [address] | + + + | Home Phone | | + + + | Preferred Language | Unknown | + + + | Marital Status | | + + + | Spiritism Affiliation | 1001 | + + + | Race | Unknown | + + + | Ethnic Group | Unknown | + + + Author + + + | Author | [facility] | | | and [place] | + + + | Organization | [facility] | | | and [...] Team Providers + +------+ + | Care Cushion Maker Hand Name | Role | Phone | + [...] Rehabilitatio | twitching | [place], | [address] | | | | n | | [address] | [place], | | | | | | [address] | [place] [address] | | | | | | [place] | Phone: | | | | | | [address] | [phone] | | | | | | Phone: | Fax: | | | | | | [phone] | [phone] | | | | | | Fax: | | | | | | | [phone] | | + + + + + + + Encounter Details +--------+---------+ + + + | Date | Type | Department | Care Team | Description | +--------+---------+ + + + | 07/05/ | Office | [facility] | Mohit Porter PA-C | 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 Date Last Reviewed: 03/18/201819990202-0953 [employer]. [address] [place] [address], [place] [address]. All [facility] ts reserved. This information is not intended as a substitute for professional medical care. Always follow your healthcare professional's instructions. documented in this encounter Progress Notes Mohit Porter PA-C - 07/05/2019 1520 PDT Mohit Porter PA-C [address] [facility] [address] [place] [address] FAX: CHIEF COMPLAINT: Chief Complaint Patient presents with Back Pain Discuss Injections HISTORY OF PRESENT ILLNESS: Mr. Alvarado is a 79 y.o. male being seen today on follow-up for complaints of chronic Low greg k pain. The patient has been seen for this complaint in the past. Previously it was recomme nded Bialteral [id number] done by Dr. Morse on 04/03/2019 for [...] has no apparent deficits with short or jail memory. The cranial nerves appear grossly intact. 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 Unfortunately Russ Alvarado continues to have [...] | 2018 | | | [address] [facility] | | | | | | [place] [address] [place] | | | | | | [place] [address] | | | | | | [phone] | | | | | | | | | | | | School Cafeteria Cook HeadFaiza | | +--------+ + + + + | 02/13/ | Office | Cardiology | Archie Gould, | | | 2019 | Visit | | MD Zofia SALAZAR | | | | | | [place] | | | | | | [phone] | | | | | | | [...]
--- OUTSIDE RECORDS SUMMARY | ~2019-07-26 | XMS | Encounter Summary ---
Demographics + + + | Address | [address] | | | [place] [address] | + + + | Home Phone | | + + + | Preferred Language | Unknown | + + + | Marital Status | | + + + | Methodist Affiliation | 1001 | + + + | Race | Unknown | + + + | Ethnic Group | Unknown | + + + Author + + + | Author | [facility] | | | and [place] | + + + | Organization | [facility] | | | [...] Team Providers + +------+ + | Care Barrel Centerer Name | Role | Phone | + [...] | | | hypertension | [facility] | [place], [place] | | | | | Coronary | [place] | [address] | | | | | artery | [place], [place] | Phone: | | | | | disease | [address] | [phone] | | | | | involving | Phone: | Fax: | | | | | [place] | [phone] | [phone] | | | | | coronary | Fax: | | | | | | artery of | [phone] | | | | | | [place] heart | | | | | | [...] + + | 07/19/ | Office | [facility] | Archie Villanueva, | Benign essential | | 2019 | Visit | CARDIOLOGY [place] | [address] | hypertension | | | | [address] | [place], [place] | (Primary Dx); | | | | [address] [place] [address] | [address] | Coronary artery | | | | [place] | | disease involving | | | | [address] | | [place] coronary | | | | [phone] | | artery of [place] | | | | | | heart [...] 97 04/26/2018 GLUF 95 04/25/2018 EC07/13/2019 From [facility] reviewed showed normal sinus rhythm with right bundle branch bl ock. 11/12/2018 Ordered and reviewed by myself showed normal sinus rhythm with right bundle branch block Last Echo:11/06/2018 From [facility] reported with normal LV size and function EF 65%. Moderate aortic stenosis mean gradient 23 mmHg. 09/14:([facility]) TDS: EF 60-65%. 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
--- OUTSIDE RECORDS SUMMARY | ~2019-07-26 | XMS | Encounter Summary ---
Demographics + + + | Address | [address] | | | [place] [address] | + + + | Home Phone | | + + + | Preferred Language | Unknown | + + + | Marital Status | | + + + | Scientology Affiliation | 1001 | + + + | Race | Unknown | + + + | Ethnic Group | Unknown | + + + Author + + + | Author | [facility] | | | and [place] | + + + | Organization | [facility] | | [...] Team Providers + +------+ + | Care Music Executive Name | Role | Phone | + [...] + + | 06/05/ | Telephone | [facility] | Sydni Padron | Other (Patient | | 2019 | | CARDIOLOGY [place] Garcia, Wardrobe Assistant | wanted sooner | | | | [address] | | appointment because | | | | [place] | | he is having | | | | [address] | | problems. ) | | | | [phone] | | | +--------+ + + + [...] | | | | | [place] [address] | | | | | | [phone] | | | | | | | | | | | | Paint Trimmer Pipe Bow[employer], [facility] | | +--------+ + + + + | 02/13/ | Office | Cardiology | Archie Gould, | | | 2019 | Visit | | MD Zofia SALAZAR | | | | | | [place] | | | | | | [phone] | | | | | | | | +--------+ + + + + documented as of this encounter Visit Diagnoses Not on filedocumented in this encounter"
--- OUTSIDE RECORDS SUMMARY | ~2019-07-26 | XMS | Encounter Summary ---
Demographics + + + | Address | [address] | | | [place] [address] | + + + | Home Phone | | + + + | Preferred Language | Unknown | + + + | Marital Status | | + + + | Taoist Affiliation | 1001 | + + + | Race | Unknown | + + + | Ethnic Group | Unknown | + + + Author + + + | Author | [facility] | | | and [place] | + + + | Organization | [facility] | | [...] Team Providers + +------+ + | Care Battery Tester And Repairer Name | Role | Phone | + +------+ + | Franky Avalos MD | PCP | | + +------+ + Encounter Details +--------+ + + + + | Date | Type | Department | Care Team | Description | +--------+ + + + + | 05/10/ | Orders Only | [facility] | Provider, | Essential (primary) | | 2018 | | SYSTEM GENERIC OP | Historical, MD [address] | hypertension; | | | | CONVERSION [address] | [address] | Encounter for | | | | [address] [place], [place] | [place] [address] | therapeutic drug | | | | [address] | | level monitoring; | | | | [phone] | | Hypokalemia | +--------+ + + [...] | | | | | [place] [address] | | | | | | [phone] | | | | | | | | | | | | Reverse Logistics Analyst, [facility] | | +--------+ + + + + | 02/13/ | Office | Cardiology | Archie Gould, | | | 2020 | Visit | | MD Zofia SALAZAR | | | | | | [place] | | | | | | [address] | | | | | | | [...]
--- OUTSIDE RECORDS SUMMARY | ~2019-07-26 | XMS | Clinical Summary ---
Demographics + + + | Address | [address] | | | [place] [address] | + + + | Home Phone | | + + + | Preferred Language | Unknown | + + + | Marital Status | | + + + | Alevism Affiliation | Unknown | + + + | Race | Unknown | + + + | Ethnic Group | Unknown | + + + Author + + + | Author | [facility] [facility] (Historical as of | | | 06-03-19) | + + + | Organization | [facility] (Historical as of | | | 06-03-19) [...] Team Providers + +------+ + | Care Hired Hand Name | Role | Phone | [...] + + | Coronary artery disease of [place] artery of [place] heart with | 02/02/2018 | | stable [...] [place] | | | | | | /[address] | | | | | | | [...] [place] | | | | | | /[address] | | | | | | | | [address] | + +-------+--------+ +--------+--------+--------+ Results Not on [...] +------+-------+ + | MEDICARE | MEDICA | [id number] | | | [address] | | | RE | | | | [place] [address] | | | IP-OP | | | | | + +--------+ +------+-------+ + | [employer] [place] | MUTUAL | [id number] | | | | | | OF | | | | | | | [place] | | | | | + +--------+ [...] Self | [birth year] Home: | [address] | | | al/Fam | | 1940 | [phone] | [place] | | | [place] | | | [address] | [address] | + +--------+ +--------+ + +
[~2019-07-26 12:49] MED LIST changes: +FLUOXETINE HCL20 MG PO
--- OUTSIDE RECORDS SUMMARY | 2019-07-26 12:52 | XMS ---
PreManage Notification: ZAIRA AGUILAR Security Sheet Manager Events No recent Security Events currently on file CRITERIA MET - [facility] - Has Care Guidelines - [facility] - 2 Visits in 30 Days CARE PROVIDERS CHANDLER MIR [facility] 11/04/2018-Current PHONE: [phone] Donavon Damon MD Primary Care Current PHONE: Unknown demi Case or Director Voice Current PHONE: Unknown [facility] Other [facility] PHONE: Unknown Francisco has no Care Guidelines for this patient. Care History Medical/Surgical 11/14/2018 [facility] - [facility]W SPOKE WITH PCP OFFICE- PATIENT AND PCP HAVE BEEN WORKING TOGETHER WITH MEDICATION CHANGES. - PATIENT CURRENTLY HAS A NEUROLOGY AND VASCULAR SURGERY REFERRAL. Albert VISIT COUNT (12 MO.) [address] [place] [facility] NOTE: Visits indicate total known visits. ED/UCC VISIT TRACKING (12 MO.) 07/26/2019 12:50 [facility] [place] TYPE: Emergency COMPLAINT: - INJURIES FROM FALL 07/13/2019 12:57 [facility] [place] TYPE: Emergency COMPLAINT: - SOB, BLOOD PRESSURE PROBLEM DIAGNOSES: - Allergy status to other drugs, medicaments and biological substances status - Essential (primary) hypertension - Elevated blood-pressure reading, without diagnosis of hypertension - intermediate school teacher (current) use of aspirin - Allergy status to narcotic agent status - Presence of coronary angioplasty implant and graft - Other intermediate school teacher (current) drug therapy 11/12/2018 14:07 [facility] [place] TYPE: Emergency COMPLAINT: - BP PROBLEM/R ARM NUMBNESS/CONFUSION DIAGNOSES: - Unspecified speech disturbances - Pure hypercholesterolemia, unspecified - Presence of coronary angioplasty implant and graft - Essential (primary) hypertension - Allergy status to other drugs, medicaments and biological substances status - Other care home (current) drug therapy - Encounter for therapeutic drug level monitoring - shelter (current) use of aspirin 11/03/2018 11:54 [facility] [place] TYPE: Emergency COMPLAINT: - POST OP PROBLEM DIAGNOSES: - Essential (primary) hypertension - Allergy status to narcotic agent status - Other intermediate school teacher (current) drug therapy - Presence of coronary angioplasty implant and graft - intermediate school teacher (current) use of aspirin - Dysarthria and anarthria - Pure hypercholesterolemia, unspecified - Allergy status to other drugs, medicaments and biological substances status - Fasciculation 10/26/2018 10:35 [facility] Phylicia HOW[facility] TYPE: Emergency DIAGNOSES: - Occlusion and stenosis of right carotid artery - Dizziness - Poss Stroke - Aphasia - Cerebral infarction, unspecified 09/15/2018 16:45 [facility]gins [place] TYPE: Emergency COMPLAINT: - HIGH BLOOD PRESSURE DIAGNOSES: - Other intermediate school teacher (current) drug therapy - Essential (primary) hypertension - Other amnesia - Allergy status to narcotic agent status - shelter (current) use of aspirin - Allergy status to other drugs, medicaments and biological substances status INPATIENT VISIT TRACKING (12 MO.) 10/26/2018 10:35 Bak[facility] HOWARD TYPE: Intensive Care DIAGNOSES: - Occlusion and stenosis of right carotid artery - Aphasia - Transient cerebral ischemic attack, unspecified - Essential (primary) hypertension - Atherosclerotic heart disease of [place] coronary artery without angina pectoris - Cerebral infarction, unspecified [email or web address]
[2019-07-26] MEDS ORDERED: NORCO 5-325 TA1 EACH PO (15:58)
== END 2019-07-26 16:21 | disposition home or self-care (01) ==
LOC: ED 12:49
PROC: 0SSNXZZ Reposition Left Metatarsal-Phalangeal Joint, External Approach (ICD-10-PCS; principal; 2019-07-26)
DX: S93.122A Dislocation of metatarsophalangeal joint of left great toe, initial encounter (principal); S01.81XA Laceration without foreign body of other part of head, initial encounter; I10 Essential (primary) hypertension; Z95.5 Presence of coronary angioplasty implant and graft; Z88.8 Allergy status to other drugs, medicaments and biological substances; Z88.5 Allergy status to narcotic agent; Z79.899 Other long term (current) drug therapy; W18.30XA Fall on same level, unspecified, initial encounter
CPT/HCPCS: 28630; 73610; 73630; 73660; 90471; 90715; 99283-25

== ENCOUNTER 2022-09-24 11:56 | Emergency (ER) | payer MEDICARE, OTHER ==
[~2022-09-24] VITALS: Ht 175.3 cm; Wt 121.6 kg
[~2022-09-24 11:56] MED LIST changes: +NORCO 5-325 TA1 EACH PO
--- OUTSIDE RECORDS SUMMARY | 2022-09-24 11:58 | XMS ---
PreManage Notification: ZAIRA AGUILAR Security Atg Java Developer Events No recent Security Events currently on file CRITERIA MET - PDM CARE PROVIDERS ADEOLA [facility] 11/04/2018-Current PHONE: Unknown Francisco has no Care Guidelines for this patient. Care History Medical/Surgical 11/14/2018 [facility] SPOKE WITH PCP OFFICE- PATIENT AND PCP HAVE BEEN WORKING TOGETHER WITH MEDICATION CHANGES. - PATIENT CURRENTLY HAS A NEUROLOGY AND VASCULAR SURGERY REFERRAL. Albert VISIT COUNT (12 MO.) 1 [facility] TOTAL 1 NOTE: Visits indicate total known visits. ED/UCC VISIT TRACKING (12 MO.) 09/24/2022 11:57 [facility] [place] TYPE: Emergency COMPLAINT: - FALL, L EAR INJURY INPATIENT VISIT TRACKING (12 MO.) No inpatient visits to display in this time frame [email or web address]
[2022-09-24] MEDS ORDERED: CARBIDOPA-LEVO1 EAC1 PO (15:42)
[2022-09-24] MEDS ORDERED: GABAPENTIN300 MG PO (15:43)
[2022-09-24] MEDS ORDERED: ATORVASTATIN CA20 MG PO (15:44)
== END 2022-09-24 17:52 | disposition home or self-care (01) ==
LOC: ED 11:56
DX: S01.312A Laceration without foreign body of left ear, initial encounter (principal); W18.30XA Fall on same level, unspecified, initial encounter; I10 Essential (primary) hypertension; E78.00 Pure hypercholesterolemia, unspecified; Z88.8 Allergy status to other drugs, medicaments and biological substances; Z88.5 Allergy status to narcotic agent; Z79.899 Other long term (current) drug therapy; Z79.82 Long term (current) use of aspirin
CPT/HCPCS: 12013; 99282-25

== ENCOUNTER 2023-02-06 15:15 | Emergency (ER) | payer MEDICARE, OTHER ==
[~2023-02-06] VITALS: Ht 175.3 cm; Wt 121.6 kg
[~2023-02-06 15:15] MED LIST changes: +ATORVASTATIN CA20 MG PO; +CARBIDOPA-LEVO1 EAC1 PO; +GABAPENTIN300 MG PO
[2023-02-06] MEDS ORDERED: DOXYCYCLINE HY100 MG PO (17:09)
[2023-02-06] MEDS ORDERED: TRAMADOL HCL50 MG PO (17:09)
[2023-02-06 17:27] VITALS: BP 195/87
== END 2023-02-06 17:32 | disposition home or self-care (01) ==
LOC: ED 15:15
DX: L03.113 Cellulitis of right upper limb (principal); I10 Essential (primary) hypertension; G20 Parkinson's disease; Z95.0 Presence of cardiac pacemaker; Z88.5 Allergy status to narcotic agent; Z88.8 Allergy status to other drugs, medicaments and biological substances; Z79.899 Other long term (current) drug therapy; Z79.82 Long term (current) use of aspirin
CPT/HCPCS: 36415; 80053; 83605; 85025; 85060

== ENCOUNTER 2023-02-21 10:50 | Emergency (ER) | payer MEDICARE, OTHER ==
[~2023-02-21] VITALS: Ht 175.3 cm; Wt 121.6 kg
[~2023-02-21 10:50] MED LIST changes: +DOXYCYCLINE HY100 MG PO; +TRAMADOL HCL50 MG PO
--- OUTSIDE RECORDS SUMMARY | 2023-02-21 10:53 | XMS ---
PreManage Notification: ZAIRA AGUILAR Security Package Checker Events No recent Security Events currently on file CRITERIA MET - [facility] - 2 Visits in 30 Days CARE PROVIDERS ADEOLA [facility] 11/04/2018-Current PHONE: Unknown Francisco has no Care Guidelines for this patient. Care History Medical/Surgical 11/14/2018 [facility] SPOKE WITH PCP OFFICE- PATIENT AND PCP HAVE BEEN WORKING TOGETHER WITH MEDICATION CHANGES. - PATIENT CURRENTLY HAS A NEUROLOGY AND VASCULAR SURGERY REFERRAL. Albert VISIT COUNT (12 MO.) 3 [facility] TOTAL 3 NOTE: Visits indicate total known visits. ED/UCC VISIT TRACKING (12 MO.) 02/21/2023 10:51 [facility] [place] TYPE: Emergency COMPLAINT: - BACK PAIN 02/06/2023 15:16 [facility] [place] TYPE: Emergency COMPLAINT: - R ARM WOUND/SWOLLEN/RED, AGITATED DIAGNOSES: - Allergy status to narcotic agent - Allergy status to other drugs, medicaments and biological substances - Cellulitis of right upper limb - Essential (primary) hypertension - long term care pharmacist (current) use of aspirin - Other terminal computer operator (current) drug therapy - Parkinson's disease - Presence of cardiac pacemaker 09/24/2022 11:57 [facility] [place] TYPE: Emergency COMPLAINT: - FALL, L EAR INJURY DIAGNOSES: - Allergy status to narcotic agent - Allergy status to other drugs, medicaments and biological substances - Essential (primary) hypertension - Fall on same level, unspecified, initial encounter - Laceration without foreign body of left ear, initial encounter - long term care pharmacist (current) use of aspirin - Other assisted (current) drug therapy - Pure hypercholesterolemia, unspecified INPATIENT VISIT TRACKING (12 MO.) No inpatient visits to display in this time frame [email or web address]
[2023-02-21 13:46] VITALS: BP 187/91
== END 2023-02-21 13:52 | disposition home or self-care (01) ==
LOC: ED 10:50
DX: S32.028A Other fracture of second lumbar vertebra, initial encounter for closed fracture (principal); W19.XXXA Unspecified fall, initial encounter; I10 Essential (primary) hypertension; G20 Parkinson's disease; Z95.5 Presence of coronary angioplasty implant and graft; Z95.0 Presence of cardiac pacemaker; Z88.5 Allergy status to narcotic agent; Z88.8 Allergy status to other drugs, medicaments and biological substances; Z79.899 Other long term (current) drug therapy; Z79.82 Long term (current) use of aspirin
CPT/HCPCS: 72131; 72192; 99284-25